=== PATIENT | female | born 1990 | race African-American/Black ===

== ENCOUNTER 2019-03-15 23:13 | Emergency (ER) | payer SELFPAY ==
[2019-03-15] MEDS ORDERED: NALOXONE HCL INJ/PF 0.4 MG/1 ML SDV IV ONE (23:23)
--- NOTE | 2019-03-15 23:28 | ER Document Report ---
ED General - General Chief Complaint: Unresponsive Stated Complaint: UNRESPONSIVE Time Seen by Provider: 03/15/19 23:19 - HPI Notes: Ms. Marquis is a 34-year-old female seen emergently for evaluation of altered mental status. Patient was brought to the front lobby by automobile by a friend with no history provided and was unresponsive but breathing spontaneously. No further history was initially obtainable. - Related Data Allergies/Adverse Reactions: No Known Allergies Allergy (Unverified 03/16/19 00:34) Past Medical History - General Cannot obtain history due to: Altered mental status - Social History Smoking Status: Unknown if Ever Smoked Family History: Reviewed & Not Pertinent Review of Systems - Review of Systems -: Yes ROS unobtainable due to patient's medical condition Physical Exam - Vital signs Vitals: Resp BP Pulse Ox 26 H 140/80 H 100 03/15/19 23:15 03/15/19 23:15 03/15/19 23:15 GENERAL: Young female patient moderately obese with spontaneous respirations which are shallow. She is not responding to painful stimuli. SKIN: Good turgor no rashes. Dry. Cool. HEAD: Normocephalic atraumatic. EYES: Pupils are pinpoint equal and sluggish. Conjunctivae and sclerae clear. EARS: CANALS AND TMS CLEAR. NOSE: CLEAR. MOUTH: No gag reflex present. Moist mucosa. Good dentition. No stridor or edema. No drooling. NECK: Supple. No masses or thyromegaly. No adenopathy. Carotids 2+ without bruits. No JVD. CHEST: Respirations slow and shallow. Breath sounds clear and symmetrical. HEART: Tachycardic regular rhythm. No murmur gallop or rub. ABDOMEN: Soft, obese, nontender without masses, organomegaly or rebound. Bowel sounds normally active. No bruits. GENITALIA: Deferred. EXTREMITIES: No edema. No calf tenderness. Cap refill less than 1.5 seconds. Dorsalis pedis and posterior tibial pulses 3+ and symmetrical. NEUROLOGICAL: Obtunded. Initial GCS of 3. PSYCHIATRIC: Nonverbal. Course - Re-evaluation Re-evalutation: 03/15/19 23:28 Narcotic overdose was strongly suspected. 2 mg Ativan IV given. Patient woke up immediately. She was momentarily disoriented but was then able to tell me her name and indicated that she had been taking some Percocet for hip pain on the left. She said that she took 2 tablets earlier this evening and does not remember anything after that. She denied any abuse of other types of drugs. She says she rarely drinks alcohol and was not drinking any tonight. She indicates she smokes 1 pack cigarettes per day. Patient's blood glucose was 250 by random stick. I suspect this elevation is due to a stress reaction but will follow this. Patient now has a GCS of 15 and nonfocal exam. We will check acetaminophen and salicylate level, blood alcohol, urine drug screen, comprehensive metabolic profile and CBC. We will also get an EKG. We note that the patient is currently menstruating. Further history obtained from the patient indicates that she is never been hospitalized or had surgery. She denies any history of in the past. She takes no long-term medications and denies allergies. 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 Currently living alone. She denies any suicidal intent. 03/16/19 02:24 Patient is currently alert and oriented x3. She is tolerating p.o. fluids stand and walk without assistance. Her vital signs are stable. She denies any suicidal intent and insists that she only took 2 of the Percocet tablets. Her tox screen was negative for alcohol and she had THC in her urine with no other illicit substances identified. Patient wants to go home at this time. I think she appears stable for disch arge. I cautioned her that she may be unusually sensitive to narcotics and advised her to dispose of any further Percocet she has on hand and to avoid taking similar agents in the future. I will give her a work note and referral for primary care follow-up. - Vital Signs Vital signs: Temp Pulse Resp BP Pulse Ox 16 120/70 97 03/16/19 01:01 03/16/19 01:01 03/16/19 01:01 - Laboratory Result Diagrams: 03/15/19 23:26 03/15/19 23:26 Laboratory results interpreted by me: 03/15/19 03/15/19 03/16/19 23:26 23:26 00:45 WBC 22.2 H RBC 5.57 H MCH 26.6 L RDW 15.1 H Band Neutrophils % 1 L Abs Neuts (Manual) 12.0 H Abs Lymphs (Manual) 7.8 H Abs Monocytes (Manual) 1.8 H Absolute Eos (Manual) 0.7 H Potassium 3.5 L Creatinine 1.29 H Est GFR ( Amer) 59 L Est GFR (MDRD) Non-Af 49 L Glucose 349 H AST 45 H Alkaline Phosphatase 155 H Urine Protein 100 H Urine Glucose (UA) >=500 H Urine Ketones TRACE H Urine Blood LARGE H Acetaminophen < 10 L - EKG Interpretation by Me Additional EKG results interpreted by me: 03/15/19 23:35 EKG at 2330 hrs. reviewed contemporaneously by me. Sinus tachycardia. Rate 126. Normal axis. Normal intervals. No acute ST changes. Critical Care Note - Critical Care Note Total time excluding time spent on procedures (mins): 35 Comments: Initial presentation c/w narcotic OD. Monitor, IV, O2, Amdera cath, preparation for possible intubation. Responded to IV Narcan and did not need intubation. Discharge - Discharge Clinical Impression: Accidental opiate overdose Condition: Stable Disposition: HOME, SELF-CARE Additional Instructions: Dispose of any additional Percocet that you have at home and do not take this medication in the future. You will be provided a work note for the next 3 days. You will be provided the name of a primary care clinic for follow-up. Return here as needed for new or worsening symptoms: Pain that is worsening or unimproved Uncontrolled vomiting High fever or shaking chills Overall worsening Forms: Return to Work Referrals: [facility] [Provider Group] - Follow up as needed
[2019-03-15 23:49] LABS: HEMATOCRIT 45.9 % (36.0-47.0); HEMOGLOBIN 14.8 g/dL (12.0-15.5); MEAN CORPUSCULAR HEMOGLOBIN 26.6 pg (27.0-33.4); MEAN CORPUSCULAR HGB CONC 32.3 g/dL (32.0-36.0); MEAN CORPUSCULAR VOLUME 82 fl (80-97); PLATELET COUNT 266 10^3/uL (150-450); RED BLOOD COUNT 5.57 10^6/uL (3.72-5.28); RED CELL DISTRIBUTION WIDTH 15.1 % (11.5-14.0); WHITE BLOOD COUNT 22.2 10^3/uL (4.0-10.5)
[2019-03-16 00:08] LABS: ABSOLUTE LYMPHOCYTES# (MANUAL) 7.8 10^3/uL (0.5-4.7); ABSOLUTE MONOCYTES # (MANUAL) 1.8 10^3/uL (0.1-1.4); BAND NEUTROPHILS % (MANUAL) 1 % (3-5); BASOPHILS % (MANUAL) 0 % (0-2); EOSINOPHILS % (MANUAL) 3 % (0-6); LYMPHOCYTES % (MANUAL) 35 % (13-45); MONOCYTES % (MANUAL) 8 % (3-13); SEGMENTED NEUTROPHILS % (MAN) 53 % (42-78); TOTAL CELLS COUNTED 100
[2019-03-16 00:10] LABS: ANISOCYTOSIS SLIGHT; OVALOCYTES SLIGHT; PLATELET COMMENT ADEQUATE; POIKILOCYTOSIS SLIGHT; SCHISTOCYTES SLIGHT; TEAR DROP CELLS SLIGHT; TOXIC GRANULATION SLIGHT
[2019-03-16 00:29] LABS: ALBUMIN 4.3 g/dL (3.5-5.0); ALKALINE PHOSPHATASE 155 U/L (38-126); ANION GAP 13 (5-19); ASPARTATE AMINO TRANSFERASE 45 U/L (14-36); BILIRUBIN,DIRECT 0.3 mg/dL (0.0-0.4); BILIRUBIN,TOTAL 0.9 mg/dL (0.2-1.3); BLOOD UREA NITROGEN 20 mg/dL (7-20); CARBON DIOXIDE 27 mmol/L (22-30); CHLORIDE 100 mmol/L (98-107); GLUCOSE 349 mg/dL (75-110); POTASSIUM 3.5 mmol/L (3.6-5.0); TOTAL PROTEIN 8.2 g/dL (6.3-8.2)
[2019-03-16 00:30] LABS: ACETAMINOPHEN < 10 ug/mL (10-30); ALCOHOL < 10 mg/dL (NONE DETECTED)
[2019-03-16 01:14] LABS: APPEARANCE,URINE SLIGHTLY-CLOUDY; BILIRUBIN,URINE NEGATIVE (NEGATIVE); GLUCOSE, URINE >=500 mg/dL (NEGATIVE); KETONES,URINE TRACE mg/dL (NEGATIVE); PROTEIN,URINE 100 mg/dL (NEGATIVE); URINE SPECIFIC GRAVITY 1.025; UROBILINOGEN,URINE NEGATIVE mg/dL (<2.0)
[2019-03-16 01:15] LABS: COLOR,URINE PINK
[2019-03-16 01:26] LABS: URINE AMPHETAMINES SCREEN NEGATIVE; URINE BARBITURATES SCREEN NEGATIVE; URINE BENZODIAZEPINES SCREEN NEGATIVE; URINE COCAINE SCREEN NEGATIVE; URINE METHADONE SCREEN NEGATIVE; URINE PHENCYCLIDINE SCREEN NEGATIVE
[2019-03-16 01:32] LABS: URINE MARIJUANA (THC) SCREEN UNCONFIRMED POSITIVE
[2019-03-16 02:31] VITALS: BP 112/64
--- NOTE | 2019-03-16 10:12 | EKG REPORT ---
SEVERITY:- OTHERWISE NORMAL ECG - SINUS TACHYCARDIA BORDERLINE RIGHT AXIS DEVIATION : Confirmed by: Barby Price MD 16-Mar-2019 10:12:34
== END 2019-03-16 02:49 | disposition home or self-care (01) ==
LOC: ER 23:13
DX: T40.2X1A Poisoning by other opioids, accidental (unintentional), initial encounter (principal); R41.82 Altered mental status, unspecified; R00.0 Tachycardia, unspecified; R73.9 Hyperglycemia, unspecified; E66.9 Obesity, unspecified; M25.552 Pain in left hip; F17.210 Nicotine dependence, cigarettes, uncomplicated
CPT/HCPCS: 93005; 99291; 96374; 36415; 82962; 80307 ×3; 85025; 80053; 81001; 93010; J2310

== ENCOUNTER 2020-01-05 22:58 | Emergency (ER) | payer SELFPAY ==
[2020-01-05] MEDS ORDERED: MAG HYDROX/AL HYDROX/SIMETH SUSP 30 ML UDCUP PO ONE (23:22)
[2020-01-05] MEDS ORDERED: LIDOCAINE 2% VISCOUS SOLN 15 ML UDCUP PO ONE (23:22)
--- NOTE | 2020-01-05 23:23 | ER Document Report ---
ED Medical Screen (RME) - General Stated Complaint: HEART RACING/TIGHTNESS OF CHEST Time Seen by Provider: 01/05/20 23:21 Notes: HPI: 29-year-old female presenting for episode of chest discomfort in the left upper chest with radiation to the shoulder that began around 10 4515 minutes after eating tonight. Denies abdominal pain nausea vomiting. No shortness of breath. Patient was concerned about it being her heart because she states that she accidentally overdosed this year and was told she "flatlined" twice during that episode PHYSICAL EXAMINATION: Mild tenderness through the left upper chest and trapezius region on palpation. Lung sounds are clear to auscultation. Mild tachycardia I have greeted and performed a rapid initial assessment of this patient. A comprehensive ED assessment and evaluation of the patient, analysis of test results and completion of medical decision making process will be conducted by an additional ED providers. TRAVEL OUTSIDE OF THE [place] IN LAST 30 DAYS: No - Related Data Allergies/Adverse Reactions: No Known Allergies Allergy (Unverified 03/16/19 00:34) Past Medical History Pulmonary Medical History: Reports: Hx Asthma Endocrine Medical History: Reports: Hx Diabetes Mellitus Type 1 Musculoskeltal Medical History: Reports Hx Arthritis Physical Exam - Vital signs Vitals: Temp Pulse Resp BP Pulse Ox 99.0 F 104 H 17 153/94 H 100 01/05/20 23:10 01/05/20 23:10 01/05/20 23:10 01/05/20 23:10 01/05/20 23:10 Course - Vital Signs Vital signs: Temp Pulse Resp BP Pulse Ox 99.0 F 104 H 17 153/94 H 100 01/05/20 23:10 01/05/20 23:10 01/05/20 23:10 01/05/20 23:10 01/05/20 23:10
[2020-01-06 00:26] LABS: ABSOLUTE BASOPHILS # (AUTO) 0.1 10^3/uL (0.0-0.2); ABSOLUTE EOSINOPHILS # (AUTO) 0.1 10^3/uL (0.0-0.6); ABSOLUTE LYMPHOCYTES (AUTO) 2.6 10^3/uL (0.5-4.7); ABSOLUTE MONOCYTES (AUTO) 0.8 10^3/uL (0.1-1.4); ABSOLUTE NEUT (AUTO) 9.4 10^3/uL (1.7-8.2); BASOPHILS % (AUTO) 0.6 % (0-2); EOSINOPHILS % (AUTO) 0.9 % (0-6); HEMATOCRIT 38.6 % (36.0-47.0); HEMOGLOBIN 13.1 g/dL (12.0-15.5); LYMPHOCYTES % (AUTO) 19.9 % (13-45); MEAN CORPUSCULAR HEMOGLOBIN 26.5 pg (27.0-33.4); MEAN CORPUSCULAR VOLUME 78 fl (80-97); MONOCYTES % (AUTO) 6.2 % (3-13); PLATELET COUNT 232 10^3/uL (150-450); RED BLOOD COUNT 4.96 10^6/uL (3.72-5.28); RED CELL DISTRIBUTION WIDTH 13.9 % (11.5-14.0); SEGMENTED NEUTROPHILS % (AUTO) 72.4 % (42-78); TOTAL CELLS COUNTED % (AUTO) 100 %
[2020-01-06 00:44] LABS: ALKALINE PHOSPHATASE 107 U/L (38-126); ANION GAP 10 (5-19); ASPARTATE AMINO TRANSFERASE 25 U/L (14-36); BILIRUBIN,TOTAL 0.5 mg/dL (0.2-1.3); BLOOD UREA NITROGEN 8 mg/dL (7-20); CALCIUM 9.7 mg/dL (8.4-10.2); CARBON DIOXIDE 26 mmol/L (22-30); CHLORIDE 99 mmol/L (98-107); GLUCOSE 285 mg/dL (75-110); TOTAL PROTEIN 7.2 g/dL (6.3-8.2)
--- NOTE | 2020-01-06 01:14 | RADIOLOGY REPORT (SQ) ---
EXAM DESCRIPTION: XR CHEST 1 VIEW COMPLETED DATE/TME: 01/05/2020 23:22 CLINICAL INDICATION: 29-year-old female with chest pain. TECHNIQUE: Single view, AP portable chest was obtained. COMPARISON: None. FINDINGS: Unremarkable cardiac and mediastinal silhouette. Heart size is normal. Lungs are clear without focal opacity, pneumothorax or pleural effusions. The visualized bones are within normal limits. IMPRESSION: No acute cardiopulmonary abnormalities.
--- NOTE | 2020-01-06 01:40 | ER Document Report ---
ED General - General Chief Complaint: Chest Pain Stated Complaint: HEART RACING/TIGHTNESS OF CHEST Time Seen by Provider: 01/05/20 23:21 Primary Care Provider: [facility] JESSICA,SUSAN [Primary Care Provider] - Follow up as needed MK BURCH MD [ACTIVE STAFF] - Follow up in 3-5 days (for cardiology outpatient follow up) TRAVEL OUTSIDE OF THE [place] IN LAST 30 DAYS: No - HPI Notes: 29-year-old female with past medical history for diabetes, accidental overdose on oxycodone 30 mg to the emergency department with complaints of acute onset left-sided chest pain radiating into her shoulder with associated mild shortness of breath. She states it started about 1045 about 15 minutes after she ate. She states she ate pizza with garlic sauce and was managed on it and had a small shot of vodka tonight for dinner. She states that she felt like her heart was racing out of her chest and palpitating. She states she has had palpitations off and on for the past couple of months as well. She states that after she got GI cocktail in triage that she is feeling little bit better but still having a little bit of mild pain. She is a diabetic. There is a past medical history for heart attack on her paternal grandfather side at age 84. She does not have a history of high blood pressure hyperlipidemia. She is a former smoker. She denies any leg swelling or recent travel. She does take control. - Related Data Allergies/Adverse Reactions: No Known Allergies Allergy (Unverified 03/16/19 00:34) Home Medications: metformin, bcp Past Medical History - General Information source: Patient - Social History Smoking Status: Former Smoker Frequency of alcohol use: Occasional Drug Abuse: None Family History: Reviewed & Not Pertinent Pulmonary Medical History: Reports: Hx Asthma Endocrine Medical History: Reports: Hx Diabetes Mellitus Type 1 Musculoskeletal Medical History: Reports Hx Arthritis Review of Systems - Review of Systems Constitutional: denies: Chills, Diaphoresis, Fever EENT: No symptoms reported Cardiovascular: Chest pain, Palpitations, Heart racing. denies: Orthopnea, Dyspnea, Syncope, Dizziness, Lightheaded, Edema Respiratory: Short of breath. denies: Cough Gastrointestinal: denies: Abdominal pain, Diarrhea, Nausea, Vomiting Genitourinary: No symptoms reported Musculoskeletal: denies: Back pain Skin: No symptoms reported Hematologic/Lymphatic: No symptoms reported Neurological/Psychological: No symptoms reported -: Yes All other systems reviewed and negative Physical Exam - Vital signs Vitals: Temp Pulse Resp BP Pulse Ox 99.0 F 104 H 17 153/94 H 100 01/05/20 23:10 01/05/20 23:10 01/05/20 23:10 01/05/20 23:10 01/05/20 23:10 Interpretation: Normal - General General appearance: Appears well, Alert In distress: None - HEENT Head: Normocephalic, Atraumatic Eyes: Normal Pupils: PERRL Neck: Normal, Supple - Respiratory Respiratory status: No respiratory distress Chest status: Nontender Breath sounds: Normal. No: Rales, Rhonchi, Wheezing Chest palpation: Normal - Cardiovascular Rhythm: Regular Heart sounds: Normal auscultation Murmur: No Notes: No pedal edema; no tenderness to palpation over the chest wall. There is no crepitus or step-off - Abdominal Inspection: Obese Distension: No distension Bowel sounds: Normal Tenderness: Nontender. No: Tender, McBurney's point, Alarcon's sign, Guarding, Rebound Organomegaly: No organomegaly - Back Back: Normal, Nontender. No: CVA tenderness - Extremities General upper extremity: Normal inspection, Nontender, Normal color, Normal ROM, Normal temperature General lower extremity: Normal inspection, Nontender, Normal color, Normal ROM, Normal temperature, Normal weight bearing. 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 Patient's chest pain is completely resolved. Certainly part of her chest pain could be related to reflux but she reports these palpitations have been coming and going for the past several months. Thus, we will send her for outpatient follow-up with cardiology. She is to return if she has any worsening symptoms. She has a HEART score of 1. Low Well's criteria for PE, low suspicion for AD. - Vital Signs Vital signs: Temp Pulse Resp BP Pulse Ox 98.2 F 104 H 20 128/87 H 100 01/06/20 04:00 01/05/20 23:10 01/06/20 04:00 01/06/20 04:00 01/06/20 04:00 - Laboratory Result Diagrams: 01/06/20 00:15 01/06/20 00:15 Laboratory results interpreted by me: 01/06/20 01/06/20 00:15 00:15 WBC 13.0 H MCV 78 L MCH 26.5 L Absolute Neuts (auto) 9.4 H Sodium 134.6 L Glucose 285 H - Diagnostic Test Radiology reviewed: Image reviewed, Reports reviewed - EKG Interpretation by Me Additional EKG results interpreted by me: 01/06/20 Rate: 105 Rhythm: Sinus tachycardia, Interpretation: No STEMI, no ST changes, no LVH, no significant change from prior on March 15, 2019. Discharge - Discharge Clinical Impression: Palpitations, Hyperglycemia Chest pain Qualifiers: Chest pain type: unspecified Qualified Code(s): R07.9 - Chest pain, unspecified Condition: Stable Disposition: HOME, SELF-CARE Instructions: Palpitations (Irregular or Rapid Heartrate) ([facility]) Additional Instructions: Follow-up with cardiology outpatient for your palpitations. Today you had reassuring blood work as well as a clear x-ray and a reassuring EKG. Return if you have any worsening symptoms. You also had a little bit of elevated blood sugar. This is likely because you just eaten and not taking your Metformin tonight. Please continue take your Metformin as prescribed. Referrals: [facility] [Primary Care Provider] - Follow up as needed MK BURCH MD [ACTIVE STAFF] - Follow up in 3-5 days (for cardiology outpatient follow up)
[2020-01-06] MEDS ORDERED: NORMAL SALINE 1000 ML 1,000 ML IV ONE (02:09)
[2020-01-06 05:03] VITALS: BP 105/72
--- NOTE | 2020-01-06 18:17 | EKG REPORT ---
SEVERITY:- OTHERWISE NORMAL ECG - SINUS TACHYCARDIA : Confirmed by: Earl Rico MD 06-Jan-2020 18:17:00
== END 2020-01-06 05:05 | disposition home or self-care (01) ==
LOC: ER 22:58
DX: E11.65 Type 2 diabetes mellitus with hyperglycemia (principal); R07.9 Chest pain, unspecified; R00.2 Palpitations
CPT/HCPCS: 93005; 99285; 96360; 36415; 82962; 84443; 85025; 80053; 84484; 71045; 93010; J3490; J7030

== ENCOUNTER → 2020-01-28 | Outpatient (CLI) | payer OTHER ==
[2020-01-28 16:22] LABS: ABSOLUTE BASOPHILS # (AUTO) 0.1 10^3/uL (0.0-0.2); ABSOLUTE EOSINOPHILS # (AUTO) 0.1 10^3/uL (0.0-0.6); ABSOLUTE LYMPHOCYTES (AUTO) 2.8 10^3/uL (0.5-4.7); ABSOLUTE MONOCYTES (AUTO) 0.6 10^3/uL (0.1-1.4); ABSOLUTE NEUT (AUTO) 7.4 10^3/uL (1.7-8.2); BASOPHILS % (AUTO) 0.6 % (0-2); EOSINOPHILS % (AUTO) 0.7 % (0-6); HEMOGLOBIN 13.2 g/dL (12.0-15.5); LYMPHOCYTES % (AUTO) 25.2 % (13-45); MEAN CORPUSCULAR VOLUME 79 fl (80-97); MONOCYTES % (AUTO) 5.8 % (3-13); PLATELET COUNT 236 10^3/uL (150-450); RED BLOOD COUNT 5.09 10^6/uL (3.72-5.28); RED CELL DISTRIBUTION WIDTH 14.2 % (11.5-14.0); SEGMENTED NEUTROPHILS % (AUTO) 67.7 % (42-78); TOTAL CELLS COUNTED % (AUTO) 100 %
[2020-01-28 16:47] LABS: ALBUMIN 4.2 g/dL (3.5-5.0); ALKALINE PHOSPHATASE 105 U/L (38-126); ANION GAP 7 (5-19); ASPARTATE AMINO TRANSFERASE 24 U/L (14-36); BILIRUBIN,TOTAL 0.9 mg/dL (0.2-1.3); BLOOD UREA NITROGEN 6 mg/dL (7-20); CALCIUM 9.7 mg/dL (8.4-10.2); CARBON DIOXIDE 27 mmol/L (22-30); CHLORIDE 101 mmol/L (98-107); GLUCOSE 139 mg/dL (75-110); POTASSIUM 4.5 mmol/L (3.6-5.0); TOTAL PROTEIN 7.6 g/dL (6.3-8.2)
== END ==
LOC: CCC 15:36
PROVIDERS: ATTEND Internal Medicine
DX: E11.8 Type 2 diabetes mellitus with unspecified complications (principal); R94.5 Abnormal results of liver function studies
CPT/HCPCS: 36415; 80048; 80076; 83036; 85025

== ENCOUNTER 2020-02-10 22:24 | Emergency (ER) | payer SELFPAY ==
--- NOTE | 2020-02-10 23:24 | ER Document Report ---
ED Medical Screen (RME) - General Chief Complaint: Chest Pain Stated Complaint: CHEST PAIN, SOB, HEADACHE Time Seen by Provider: 02/10/20 23:20 Primary Care Provider: SUSAN DAS [Primary Care Provider] - Follow up as needed TRAVEL OUTSIDE OF THE [place] IN LAST 30 DAYS: No - HPI Notes: Patient is a 29-year-old female with a hx of asthma who presents with chest tightness and shortness of breath that began a couple hours ago. She also reports headache and sore throat. She denies fever, cough, nasal congestion, abdominal pain and vomiting. Patient states this does not feel like her typical asthma exacerbations. She denies any known sick contacts or potential COVID exposures. - Related Data Allergies/Adverse Reactions: No Known Allergies Allergy (Unverified 03/16/19 00:34) Home Medications: control, 1000mg metformin, Past Medical History - Social History Frequency of alcohol use: None Drug Abuse: None Pulmonary Medical History: Reports: Hx Asthma Endocrine Medical History: Reports: Hx Diabetes Mellitus Type 1, Hx Diabetes Mellitus Type 2 Musculoskeltal Medical History: Reports Hx Arthritis Physical Exam - Vital signs Vitals: Temp Pulse Resp BP Pulse Ox 99.3 F 89 20 126/84 H 100 02/10/20 22:41 02/10/20 22:41 02/10/20 22:41 02/10/20 22:41 02/10/20 22:41 - Respiratory Respiratory status: No respiratory distress Breath sounds: Normal Course - Re-evaluation Re-evalutation: I have greeted and performed a rapid initial assessment of this patient. A comprehensive ED assessment and evaluation of the patient, analysis of test results and completion of medical decision making process will be conducted by an additional ED providers. - Vital Signs Vital signs: Temp Pulse Resp BP Pulse Ox 99.3 F 89 20 126/84 H 100 02/10/20 22:41 02/10/20 22:41 02/10/20 22:41 02/10/20 22:41 02/10/20 22:41 Doctor's Discharge - Discharge Referrals: [facility] [Primary Care Provider] - Follow up as needed
[2020-02-11 00:01] LABS: ABSOLUTE BASOPHILS # (AUTO) 0.1 10^3/uL (0.0-0.2); ABSOLUTE EOSINOPHILS # (AUTO) 0.1 10^3/uL (0.0-0.6); ABSOLUTE LYMPHOCYTES (AUTO) 3.2 10^3/uL (0.5-4.7); ABSOLUTE MONOCYTES (AUTO) 0.8 10^3/uL (0.1-1.4); ABSOLUTE NEUT (AUTO) 7.8 10^3/uL (1.7-8.2); BASOPHILS % (AUTO) 0.5 % (0-2); EOSINOPHILS % (AUTO) 1.1 % (0-6); HEMATOCRIT 38.2 % (36.0-47.0); HEMOGLOBIN 12.8 g/dL (12.0-15.5); LYMPHOCYTES % (AUTO) 26.7 % (13-45); MEAN CORPUSCULAR HEMOGLOBIN 26.2 pg (27.0-33.4); MEAN CORPUSCULAR HGB CONC 33.4 g/dL (32.0-36.0); MEAN CORPUSCULAR VOLUME 78 fl (80-97); MONOCYTES % (AUTO) 6.4 % (3-13); PLATELET COUNT 199 10^3/uL (150-450); RED BLOOD COUNT 4.87 10^6/uL (3.72-5.28); RED CELL DISTRIBUTION WIDTH 15.1 % (11.5-14.0); SEGMENTED NEUTROPHILS % (AUTO) 65.3 % (42-78); TOTAL CELLS COUNTED % (AUTO) 100 %
[2020-02-11 00:14] LABS: ALBUMIN 3.9 g/dL (3.5-5.0); ALKALINE PHOSPHATASE 89 U/L (38-126); ANION GAP 8 (5-19); ASPARTATE AMINO TRANSFERASE 25 U/L (14-36); BILIRUBIN,TOTAL 0.6 mg/dL (0.2-1.3); BLOOD UREA NITROGEN 8 mg/dL (7-20); CALCIUM 9.9 mg/dL (8.4-10.2); CARBON DIOXIDE 25 mmol/L (22-30); CHLORIDE 103 mmol/L (98-107); GLUCOSE 131 mg/dL (75-110); POTASSIUM 4.4 mmol/L (3.6-5.0); TOTAL PROTEIN 7.4 g/dL (6.3-8.2)
--- NOTE | 2020-02-11 00:14 | RADIOLOGY REPORT (SQ) ---
CLINICAL HISTORY: chest pain COMPARISON: 01/06/2020. 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 Lungs are clear without consolidation, atelectasis, mass or edema. There is no pleural effusion. There is no pneumothorax. There are no acute osseous findings. IMPRESSION: Clear lungs.
--- NOTE | 2020-02-11 00:24 | EKG REPORT ---
SEVERITY:- NORMAL ECG - SINUS RHYTHM : Confirmed by: Lelia Cuello 11-Feb-2020 00:24:06
--- NOTE | 2020-02-11 01:41 | ER Document Report ---
ED General - General Chief Complaint: Chest Pain Stated Complaint: CHEST PAIN, SOB, HEADACHE Time Seen by Provider: 02/10/20 23:20 Primary Care Provider: [facility] [Primary Care Provider] - Follow up as needed TRAVEL OUTSIDE OF THE [place] IN LAST 30 DAYS: No - HPI Context: Chief Complaint: [Chest tightness] [29-year-old female with a history of asthma presents to the emergency department complaining of chest tightness and trouble breathing for the past 5 days. Patient states that she does not have an albuterol inhaler currently. Patient denies smoking or vaping. Patient states that she is not closely around anybody else who smokes. Patient denies radiation of tightness into her neck or jaw or down into her arm. Patient denies history of COVID-19 infection, known exposure to COVID-19 positive persons or persons under investigation for COVID-19. Patient denies fever, chills ] History obtained from [patient] Symptoms began:[5 days ago] Onset: [Gradual] Timing: [Gradual] Quality: [Patient describes sensations of tightness in her chest and is complaining of difficulty taking a deep breath] Intensity: [Patient states the intensity is moderate but denies pain] Location: [Chest] Radiation: [None] [The pain does not migrate to a new location.] Aggravating factors: Exertion Relieving factors: [none] Positive SOB [Denies] nausea [Denies] vomiting [Denies] sweats [Denies] fever [Denies] cough [Denies] calf or leg swelling or pain - Related Data Allergies/Adverse Reactions: No Known Allergies Allergy (Unverified 03/16/19 00:34) Home Medications: control, 1000mg metformin, Past Medical History - General Information source: Patient - Social History Smoking Status: Never Smoker Frequency of alcohol use: None Drug Abuse: None Family History: Reviewed & Not Pertinent Patient has homicidal ideation: No Pulmonary Medical History: Reports: Hx Asthma Endocrine Medical History: Reports: Hx Diabetes Mellitus Type 1, Hx Diabetes Mellitus Type 2 Musculoskeletal Medical History: Reports Hx Arthritis Review of Systems - Review of Systems Notes: Review of systems as below unless otherwise stated in HPI. CONSTITUTIONAL [No] fever, [No] chills. EYES [No] eye pain. ENT [No] URI symptoms, [No] sore throat, [No] ear pain. CARDIOVASCULAR [No] chest pain, [No] palpitations, [No] edema. Positive chest tightness RESPIRATORY [No] Cough, positive SOB, positive wheezing. GASTROINTESTINAL [No] abdominal pain, [No] nausea, [No] Diarrhea, [No] Vomiting, [No] constipation, [No] melena, [No] rectal bleeding. GENITOURINARY [No] dysuria, [No] urinary frequency, [No] hematuria, [No] urinary urgency, [No] vaginal discharge, [No] vaginal bleeding. MUSCULOSKELETAL [No] Back pain. SKIN [No] Rash. NEUROLOGIC [No] Headache, [No] recent seizures, [No] paralysis,[No] parathesias. ENDOCRINE [No] polyuria. HEMO/LYMPATIC [No] easy brusing PSYCHIATRIC [No] depression. Physical Exam - Vital signs Vitals: Temp Pulse Resp BP Pulse Ox 99.3 F 89 20 126/84 H 100 02/10/20 22:41 02/10/20 22:41 02/10/20 22:41 02/10/20 22:41 02/10/20 22:41 - Notes Notes: CONSTITUTIONAL [Vital signs reviewed, Patient appears comfortable, Alert and oriented X 3, Normal stature.] HEAD [Atraumatic, Normocephalic.] EYES [Eyes are normal to inspection, No discharge from eyes, Extraocular muscles intact, Sclera are normal, Conjunctiva are normal.] ENT [External ears normal to inspection, Nose examination normal, Mouth normal to inspection.] NECK [Normal ROM, No jugular venous distention, No meningeal signs, ] RESPIRATORY CHEST [Chest is nontender, breath sounds are diminished in all lung plunkett. Wheezing is present in the posterior lung bases bilaterally CARDIOVASCULAR [RRR, No murmurs, Normal S1 S2, No rub, No gallop.] ABDOMEN [Abdomen is nontender, No pulsatile masses, No other masses, Bowel sounds normal, No distension, No peritoneal signs, No hernias.] BACK [There is no CVA Tenderness, There is no tenderness to palpation, Normal inspection.] UPPER EXTREMITY [Inspection normal, No cyanosis, No clubbing, No edema, LOWER EXTREMITY [Inspection normal, No cyanosis, No clubbing, No edema, No calf tenderness, NEURO [No focal motor deficits, No focal sensory deficits, Speech normal.] SKIN [Skin is warm, Skin is dry, Skin is normal color.] PSYCHIATRIC [Normal affect. ] Course - Re-evaluation Re-evalutation: 02/11/20 04:01 Patient states she feels better after breathing treatments. Results of ED MSE discussed with patient. All questions were answered prior to discharge. Emergency signs and symptoms, reasons to return to the emergency department discussed with patient. - Vital Signs Vital signs: Temp Pulse Resp BP Pulse Ox 98.2 F 98 16 128/73 H 100 02/11/20 03:27 02/11/20 03:27 02/11/20 03:27 02/11/20 03:27 02/11/20 03:27 - Laboratory Results Result Diagrams: 02/10/20 23:30 02/10/20 23:30 Laboratory Results Interpreted: 02/10/20 02/10/20 23:30 23:30 WBC 12.0 H MCV 78 L MCH 26.2 L RDW 15.1 H Sodium 135.5 L Glucose 131 H Critical Laboratory Results Reviewed: No Critical Results Attending or Supervising Physician who Reviewed Labs: VOLODYMYR DERAS IV - Radiology Results Critical Radiology Results Reviewed: No Critical Results Attending or Supervising Physician who Reviewed Radiology: VOLODYMYR DERAS IV - EKG Interpretation by Me Additional EKG results interpreted by me: 02/11/20 01:30 EKG obtained on 02/10/2020 at 2233 hrs. was interpreted by this MD. Findings: Normal sinus rhythm, rate 86, normal axis, AK interval appears to be within normal limits, P waves preceding QRS complexes, QRS complexes appear narrow, QTC is 436, there are no obvious patterns of ST segment elevation, depression or reciprocal changes seen to suggest acute myocardial ischemia or infarction. When compared with prior EKG from 01/05/2020 the gross morphology of the 2 EKGs appears to be the same. No significant changes seen. Impression normal sinus rhythm with nonspecific ST segments. Discharge - Discharge Clinical Impression: Asthma exacerbation Qualifiers: Asthma severity: unspecified severity Asthma persistence: unspecified Qualified Code(s): J45.901 - Unspecified asthma with (acute) exacerbation Condition: Stable Disposition: HOME, SELF-CARE Additional Instructions: Return to the Emergency Department without delay if any worse. HOME CARE INSTRUCTIONS & INFORMATION: Thank you for choosing us for your medical needs. We hope you're satisfied with the care you received. After you leave, you must properly care for your problem and, at the same time, observe its progress. Any condition can change. Some illnesses can change rapidly over hours or days. If your condition worsens, return to the Emergency Department or see your physician promptly. ABOUT YOUR X-RAYS AND EKG'S: If you had an EKG or X-rays taken, they have been read by the Emergency Physician. The X-rays and EKG's will also be read by a Radiologist or Other Wood Processing Machine Operator within 24 hours. If discrepancies are noted, you will be notified by telephone. Please be certain the ED has a correct telephone number & address where you can be reached. Also, realize that some fractures or abnormalities do not show up on initial X-rays. If your symptoms continue, see your physician. ABOUT YOUR LABORATORY TEST: If you had laboratory tests, the results have been reviewed by the Emergency Physician. Some test results (for example cultures) may not be available for several days. You will be contacted if any test result shows you need additional treatment. Please be certain the ED has a correct telephone number and address where you can be reached. ABOUT YOUR MEDICATIONS: You will receive instructions on how to take your medicine on the prescription label you receive. Additional information may be provided by the Pharmacy. If you have questions afterwards, call the ED for clarification or further instructions. Some prescribed medications may cause drowsiness. Do not perform tasks such as driving a car or operating machinery without consulting your Pharmacist. If you feel you need a refill of pain medication, your condition will need re-evaluation. Please do not call for a refill of any medication. ABOUT YOUR SIGNATURE: Signature of this document acknowledges to followin. Understanding that you received emergency treatment and that you may be released before al medical problems are known or treated. Please be certain the ED has a correct phone number & address where you can be reached. 2. Acknowledgement that you will arrange for follow-up care as recommended. 3. Authorization for the Emergency Physician to provide information to your follow-up Physician in order to maximize your care. AT ANY TIME, IF YOUR SYMPTOMS CHANGE SIGNIFICANTLY OR WORSEN OR YOU DEVELOP NEW SYMPTOMS, RETURN TO THE EMERGENCY DEPARTMENT IMMEDIATELY FOR RE-EVALUATION. OUR GOAL IS TO PROVIDE EXCELLENT MEDICAL CARE! WE HOPE THAT WE HAVE MET YOUR EXPECTATIONS DURING YOUR EMERGENCY DEPARTMENT VISIT AND THAT YOU FEEL YOU HAVE RECEIVED EXCELLENT CARE! Prescriptions: Prednisone [Deltasone 20 mg Tablet] 3 tab PO DAILY 4 Days #12 tablet Forms: Return to Work Referrals: [facility] [Primary Care Provider] - Follow up as needed
[2020-02-11] MEDS ORDERED: LEVALBUTEROL HCL NEB 1.25 MG/3 ML AMPUL NEB ONE (01:42)
[2020-02-11] MEDS ORDERED: PREDNISONE 20 MG TABLET PO ONE (01:42)
[2020-02-11] MEDS ORDERED: ALBUTEROL SULFATE HFA (90 MCG/PUFF) 8 GM MDI (1 MDI/ER DISP) IH PRN (03:07)
[2020-02-11 03:28] VITALS: BP 128/73
== END 2020-02-11 03:30 | disposition home or self-care (01) ==
LOC: ER 22:24
DX: J45.901 Unspecified asthma with (acute) exacerbation (principal); R07.89 Other chest pain; R06.02 Shortness of breath; E11.9 Type 2 diabetes mellitus without complications; Z79.3 Long term (current) use of hormonal contraceptives; Z79.84 Long term (current) use of oral hypoglycemic drugs
CPT/HCPCS: 93005; 94640; 99285; 36415; 87070; 87880; 85025; 80053; 84484; 71045; 93010; J7512; J7614; J3490

== ENCOUNTER 2020-02-12 13:06 | Emergency (ER) | payer SELFPAY ==
--- NOTE | 2020-02-12 13:53 | ER Document Report ---
ED Medical Screen (RME) - General Chief Complaint: Shortness Of Breath Stated Complaint: SHORT OF BREATH,HEADACHE Time Seen by Provider: 02/12/20 13:46 Primary Care Provider: [facility] [Primary Care Provider] - Follow up as needed Notes: HPI: 29-year-old female with history of hypertension, diabetes, asthma presenting for continued or worsened shortness of breath and tightness in the chest. Patient became ill approximately 7 days ago with shortness of breath. She believed it was asthma and was using her inhaler did not get better states she came here 2 days ago and had a chest x-ray and an EKG and they said she was fine she did feel better on steroids with an inhaler but today the inhaler is not working she feels shortness of breath and tightness in the chest when she takes a deep breath in. No fever PHYSICAL EXAMINATION: Lung sounds are clear to auscultation regular rate and rhythm no dyspnea with speaking I have greeted and performed a rapid initial assessment of this patient. A comprehensive ED assessment and evaluation of the patient, analysis of test results and completion of medical decision making process will be conducted by an additional ED providers. TRAVEL OUTSIDE OF THE [place] IN LAST 30 DAYS: No - Related Data Allergies/Adverse Reactions: Latex, Natural Rubber Allergy (Verified 02/12/20 13:45) Home Medications: albuterol inhaler. steriods. metformin. control alyacen Past Medical History - Social History Chew tobacco use (# tins/day): No Frequency of alcohol use: Occasional Drug Abuse: None - Past Medical History Cardiac Medical History: Reports: Hx Hypertension Pulmonary Medical History: Reports: Hx Asthma Endocrine Medical History: Reports: Hx Diabetes Mellitus Type 2 Renal/ Medical History: Denies: Hx Peritoneal Dialysis Psychiatric Medical History: Reports: Hx Anxiety Past Surgical History: Reports: Hx Oral Surgery - wisdom teeth - Immunizations Hx Diphtheria, Pertussis, Tetanus Vaccination: Yes Physical Exam - Vital signs Vitals: Temp Pulse Resp BP Pulse Ox 98.9 F 98 20 133/81 H 98 02/12/20 13:39 02/12/20 13:39 02/12/20 13:39 02/12/20 13:39 02/12/20 13:39 Course - Vital Signs Vital signs: Temp Pulse Resp BP Pulse Ox 98.9 F 98 20 133/81 H 98 02/12/20 13:39 12/15/20 13:39 02/12/20 13:39 02/12/20 13:39 02/12/20 13:39 Doctor's Discharge - Discharge Referrals: [facility] [Primary Care Provider] - Follow up as needed
--- NOTE | 2020-02-12 14:21 | EKG REPORT ---
SEVERITY:- NORMAL ECG - SINUS RHYTHM : Confirmed by: Barby Price MD 12-Feb-2020 14:20:48
--- NOTE | 2020-02-12 14:57 | RADIOLOGY REPORT (SQ) ---
EXAM DESCRIPTION: CHEST SINGLE VIEW IMAGES COMPLETED DATE/TIME: 02/12/2020 2:34 pm REASON FOR STUDY: sob COMPARISON: 12/05/2019 NUMBER OF VIEWS: One view. TECHNIQUE: Single frontal radiographic view of the chest acquired. LIMITATIONS: None. FINDINGS: LUNGS AND PLEURA: No opacities, masses or pneumothorax. No pleural effusion. MEDIASTINUM AND HILAR STRUCTURES: No masses. Contour normal. HEART AND VASCULAR STRUCTURES: Heart normal in size. Normal vasculature. BONES: No acute findings. HARDWARE: None in the chest. OTHER: No other significant finding. IMPRESSION: NO SIGNIFICANT RADIOGRAPHIC FINDING IN THE CHEST. TECHNICAL DOCUMENTATION: JOB ID: [id number] 2010 [employer]- All Rights Reserved Reading location - IP/workstation name: [email or web address]
[2020-02-12 17:13] LABS: ABSOLUTE BASOPHILS # (AUTO) 0.1 10^3/uL (0.0-0.2); ABSOLUTE MONOCYTES (AUTO) 0.8 10^3/uL (0.1-1.4); ABSOLUTE NEUT (AUTO) 9.5 10^3/uL (1.7-8.2); BASOPHILS % (AUTO) 0.6 % (0-2); EOSINOPHILS % (AUTO) 0.3 % (0-6); HEMATOCRIT 38.4 % (36.0-47.0); HEMOGLOBIN 12.6 g/dL (12.0-15.5); LYMPHOCYTES % (AUTO) 22.6 % (13-45); MEAN CORPUSCULAR HEMOGLOBIN 25.7 pg (27.0-33.4); MEAN CORPUSCULAR HGB CONC 32.9 g/dL (32.0-36.0); MEAN CORPUSCULAR VOLUME 78 fl (80-97); MONOCYTES % (AUTO) 5.7 % (3-13); PLATELET COUNT 215 10^3/uL (150-450); RED BLOOD COUNT 4.91 10^6/uL (3.72-5.28); SEGMENTED NEUTROPHILS % (AUTO) 70.8 % (42-78); TOTAL CELLS COUNTED % (AUTO) 100 %; WHITE BLOOD COUNT 13.4 10^3/uL (4.0-10.5)
[2020-02-12 17:22] LABS: ALKALINE PHOSPHATASE 90 U/L (38-126); ANION GAP 8 (5-19); ASPARTATE AMINO TRANSFERASE 40 U/L (14-36); BILIRUBIN,DIRECT 0.1 mg/dL (0.0-0.4); BILIRUBIN,TOTAL 0.9 mg/dL (0.2-1.3); BLOOD UREA NITROGEN 9 mg/dL (7-20); CALCIUM 9.6 mg/dL (8.4-10.2); CARBON DIOXIDE 27 mmol/L (22-30); CHLORIDE 102 mmol/L (98-107); GLUCOSE 205 mg/dL (75-110); POTASSIUM 4.4 mmol/L (3.6-5.0); TOTAL PROTEIN 7.5 g/dL (6.3-8.2)
[2020-02-12 17:40] LABS: NT PRO BNP 40 pg/mL (<125)
[2020-02-12 17:46] LABS: TROPONIN I < 0.012 ng/mL
--- NOTE | 2020-02-12 17:54 | ER Document Report ---
ED General - General Chief Complaint: Shortness Of Breath Stated Complaint: SHORT OF BREATH,HEADACHE Time Seen by Provider: 02/12/20 13:46 Primary Care Provider: [facility] [Primary Care Provider] - Follow up in 3-5 days Mode of Arrival: Ambulatory Information source: Patient TRAVEL OUTSIDE OF THE [place] IN LAST 30 DAYS: No - HPI Notes: Patient has a history of asthma. She states she was seen here 2 days ago and g iven an inhaler and steroids however she now feels worse. She states the shortness breath is slightly worse but she has been feeling dizzy and lightheaded today and having a headache. She states this concerned her so she came back to emergency department. No known Covid virus exposures. No vomiting or diarrhea. Her headache is been mild to moderate. Is been throbbing. Is mainly frontal and radiates throughout her head. It is worse with movement and better with rest. - Related Data Allergies/Adverse Reactions: Latex, Natural Rubber Allergy (Verified 02/12/20 13:45) Home Medications: albuterol inhaler. steriods. metformin. control alyacen Past Medical History - General Information source: Patient - Social History Smoking Status: Never Smoker Chew tobacco use (# tins/day): No Frequency of alcohol use: Occasional Drug Abuse: None Family History: Reviewed & Not Pertinent Patient has homicidal ideation: No - Past Medical History Cardiac Medical History: Reports: Hx Hypertension Pulmonary Medical History: Reports: Hx Asthma Endocrine Medical History: Reports: Hx Diabetes Mellitus Type 2 Renal/ Medical History: Denies: Hx Peritoneal Dialysis Psychiatric Medical History: Reports: Hx Anxiety Past Surgical History: Reports: Hx Oral Surgery - wisdom teeth - Immunizations Hx Diphtheria, Pertussis, Tetanus Vaccination: Yes Review of Systems - Review of Systems Constitutional: denies: Chills, Fever Cardiovascular: denies: Chest pain, Palpitations Respiratory: Cough, Short of breath -: Yes All other systems reviewed and negative Physical Exam - Vital signs Vitals: Temp Pulse Resp BP Pulse Ox 98.9 F 98 20 133/81 H 98 02/12/20 13:39 02/12/20 13:39 02/12/20 13:39 02/12/20 13:39 02/12/20 13:39 Interpretation: Normal - General General appearance: Appears well, Alert - HEENT Head: Normocephalic, Atraumatic Eyes: Normal Pupils: PERRL - Respiratory Respiratory status: No respiratory distress Chest status: Nontender Breath sounds: Normal Chest palpation: Normal - Cardiovascular Rhythm: Regular Heart sounds: Normal auscultation Murmur: No - Abdominal Inspection: Normal Distension: No distension Bowel sounds: Normal Tenderness: Nontender Organomegaly: No organomegaly - Back Back: Normal, Nontender - Extremities General upper extremity: Normal inspection, Nontender, Normal color, Normal ROM, Normal temperature General lower extremity: Normal inspection, Nontender, Normal color, Normal ROM, Normal temperature, Normal weight bearing. No: Mimi's sign - Neurological Neuro grossly intact: Yes Cognition: Normal Orientation: AAOx4 Michael Coma Scale Eye Opening: Spontaneous [place] Coma Scale Verbal: Oriented [place] Coma Scale Motor: Obeys Commands Michael Coma Scale Total: 15 Speech: Normal Motor strength normal: LUE, RUE, LLE, RLE Sensory: Normal - Psychological Associated symptoms: Normal affect, Normal mood - Skin Skin Temperature: Warm Skin Moisture: Dry Skin Color: Normal Course - Re-evaluation Re-evalutation: 02/12/20 19:36 Patient presents stating that she feels like she is not improving with the steroids and inhaler. Her testing comes back positive for rhinovirus. CT scan shows no evidence of pulmonary embolism. I think at this time patient can be discharged home to continue outpatient therapy and follow-up with her primary care physician. - Vital Signs Vital signs: Temp Pulse Resp BP Pulse Ox 98.9 F 98 20 133/81 H 100 02/12/20 13:39 02/12/20 13:39 02/12/20 13:39 02/12/20 13:39 02/12/20 16:52 - Laboratory Results Result Diagrams: 02/12/20 16:42 02/12/20 16:42 Laboratory Results Interpreted: 02/12/20 02/12/20 02/12/20 16:42 16:42 16:42 WBC 13.4 H MCV 78 L MCH 25.7 L RDW 15.0 H Absolute Neuts (auto) 9.5 H Sodium 136.6 L Glucose 205 H AST 40 H ALT 48 H Entero/Rhino (PCR) DETECTED H Critical Laboratory Results Reviewed: No Critical Results - Radiology Results Critical Radiology Results Reviewed: No Critical Results Discharge - Discharge Clinical Impression: Rhinovirus infection URI (upper respiratory infection) Qualifiers: URI type: unspecified URI Qualified Code(s): J06.9 - Acute upper respiratory infection, unspecified Condition: Stable Disposition: HOME, SELF-CARE Instructions: Upper Respiratory Illness ([facility]) Prescriptions: Azithromycin [Zithromax 250 mg Tablet] 250 mg PO ASDIR PRN #6 tablet PRN Reason: Forms: Return to Work Referrals: [facility] [Primary Care Provider] - Follow up in 3-5 days
--- NOTE | 2020-02-12 19:33 | RADIOLOGY REPORT (SQ) ---
EXAM DESCRIPTION: CTA CHEST IMAGES COMPLETED DATE/TIME: 02/12/2020 4:04 pm REASON FOR STUDY: sob COMPARISON: Single-view chest same date. TECHNIQUE: CT scan of the chest performed using helical scanning technique with dynamic intravenous contrast injection. Images reviewed with lung, soft tissue and bone windows. Reconstructed coronal and sagittal MPR images reviewed. Additional 3 dimensional post-processing performed to develop Maximal Intensity Projection images ([place] P). All images stored on PACS. All CT scanners at this facility use dose modulation, iterative reconstruction, and/or weight based d osing when appropriate to reduce radiation dose to as low as reasonably achievable (ALARA). [facility]: Dose Right [facility]: CareDose [facility]: Dose Right [facility]: Teradose 4D [facility]: ADOP CONTRAST TYPE AND DOSE: contrast/concentration: Isovue 350.00 mmol/ml; Total Contrast Delivered: 71. 0 ml; Total Saline Delivered: 75.0 ml Contrast bolus adequate for pulmonary arteries and aorta. RENAL FUNCTION: None required. The patient is less than 50 years old. RADIATION DOSE: CT Rad equipment meets quality standard of care and radiation dose reduction techniq ues were employed. CTDIvol: 9.9 - 28.7 mGy. DLP: 1027 mGy-cm. . LIMITATIONS: None. FINDINGS: LUNGS AND PLEURA: No masses, suspicious opacities, or pneumothorax. No pleural effusions or pleural calcifications. AORTA AND GREAT VESSELS: No aneurysm. No dissection. HEART: No pericardial effusion. No significant coronary artery calcifications. PULMONARY ARTERIES: No emboli visualized in the main pulmonary arteries or the segmental branches. HILAR AND MEDIASTINAL STRUCTURES: No identified masses or abnormal nodes. HARDWARE: None in the chest. UPPER ABDOMEN: No significant findings. Limited exam. THYROID AND OTHER SOFT TISSUES: No masses. No adenopathy. BONES: No acute or significant finding. 3D MIPS: Confirm above findings. OTHER: No other significant finding. IMPRESSION: NORMAL CTA OF THE CHEST. NO PULMONARY EMBOLI. COMMENT: Quality ID # [id number]: Final reports with documentation of one or more dose reduction techniques (e.g., Automated exposure control, adjustment of the mA and/or kV according to patient size, use of iterative reconstruction technique) TECHNICAL DOCUMENTATION: JOB ID: [id number] [employer]- All Rights Reserved Reading location - IP/workstation name: [email or web address]
[2020-02-12 19:49] VITALS: BP 125/92
== END 2020-02-12 19:50 | disposition home or self-care (01) ==
LOC: ER 13:06 → MERGE 13:06 → ER 19:50
DX: J06.9 Acute upper respiratory infection, unspecified (principal); B34.8 Other viral infections of unspecified site; R06.02 Shortness of breath; R51.9 Headache, unspecified; I10 Essential (primary) hypertension; E11.9 Type 2 diabetes mellitus without complications; Z20.828 Contact with and (suspected) exposure to other viral communicable diseases; Z91.040 Latex allergy status
CPT/HCPCS: 93005; 99285; 36415; 85025; 0202U ×23; 80053; 84484; 83880; 71045; 71275; 93010

== ENCOUNTER 2020-02-29 13:37 | Emergency (ER) | payer SELFPAY ==
[2020-02-29 13:44] VITALS: BP 169/93
--- NOTE | 2020-02-29 14:59 | ER Document Report ---
ED Medical Screen (RME) - General Chief Complaint: Shortness Of Breath Stated Complaint: BLOOD PRESSURE ISSUE, LEFT SIDE TIGHTNESS IN CHEST Time Seen by Provider: 02/29/20 14:51 Primary Care Provider: [facility] [Primary Care Provider] - Follow up as needed Notes: Patient is a 29-year-old female presents emergency department with shortness of breath and concern for high blood pressure. Patient states that she continues to have shortness of breath from her previous visit here in the emergency department from January. States that she continues to be short of breath. Denies any contact with anybody who tested positive for COVID-19. Exam: No respiratory distress noted. I have greeted and performed a rapid initial assessment of this patient. A comprehensive ED assessment and evaluation of the patient, analysis of test results and completion of medical decision making process will be conducted by an additional ED providers. TRAVEL OUTSIDE OF THE [place] IN LAST 30 DAYS: No - Related Data Allergies/Adverse Reactions: No Known Allergies Allergy (Unverified 03/16/19 00:34) Past Medical History Pulmonary Medical History: Reports: Hx Asthma Endocrine Medical History: Reports: Hx Diabetes Mellitus Type 1, Hx Diabetes Mellitus Type 2 Musculoskeltal Medical History: Reports Hx Arthritis Physical Exam - Vital signs Vitals: Temp Pulse Resp BP Pulse Ox 98.6 F 98 22 H 169/93 H 98 02/29/20 13:42 02/29/20 13:42 02/29/20 13:42 02/29/20 13:42 02/29/20 13:42 Course - Vital Signs Vital signs: Temp Pulse Resp BP Pulse Ox 98.6 F 98 22 H 169/93 H 98 02/29/20 13:42 02/29/20 13:42 02/29/20 13:42 02/29/20 13:42 02/29/20 13:42 - Laboratory Results Result Diagrams: 02/29/20 17:20 02/29/20 17:20 Laboratory Results Interpreted: 02/29/20 02/29/20 17:20 17:20 WBC 12.2 H MCV 78 L MCH 25.8 L RDW 14.8 H Absolute Neuts (auto) 9.0 H BUN 5 L Glucose 126 H Doctor's Discharge - Discharge Disposition: AGAINST MEDICAL ADVICE Referrals: [facility] [Primary Care Provider] - Follow up as needed
--- NOTE | 2020-02-29 15:50 | RADIOLOGY REPORT (SQ) ---
EXAM DESCRIPTION: CHEST SINGLE VIEW IMAGES COMPLETED DATE/TIME: 02/29/2020 3:31 pm REASON FOR STUDY: shortness of breath COMPARISON: 02/10/2020. EXAM PARAMETERS: NUMBER OF VIEWS: One view. TECHNIQUE: Single frontal radiographic view of the chest acquired. RADIATION DOSE: NA LIMITATIONS: None. FINDINGS: LUNGS AND PLEURA: No opacities, masses or pneumothorax. No pleural effusion. MEDIASTINUM AND HILAR STRUCTURES: No masses. Contour normal. HEART AND VASCULAR STRUCTURES: Heart normal in size. Normal vasculature. BONES: No acute findings. HARDWARE: None in the chest. OTHER: No other significant finding. IMPRESSION: NO ACUTE RADIOGRAPHIC FINDING IN THE CHEST. TECHNICAL DOCUMENTATION: JOB ID: [id number] 2010 [employer]- All Rights Reserved Reading location - IP/workstation name: [email or web address]
[2020-02-29 16:30] LABS: APPEARANCE,URINE CLEAR; BILIRUBIN,URINE NEGATIVE (NEGATIVE); COLOR,URINE COLORLESS; GLUCOSE, URINE NEGATIVE (NEGATIVE); KETONES,URINE NEGATIVE (NEGATIVE); LEUKOCYTE ESTERASE,URINE NEGATIVE (NEGATIVE); NITRITE,URINE NEGATIVE (NEGATIVE); PROTEIN,URINE NEGATIVE (NEGATIVE); URINE SPECIFIC GRAVITY 1.003; UROBILINOGEN,URINE NEGATIVE mg/dL (<2.0)
[2020-02-29 16:59] LABS: A TYPE INFLUENZA AG NEGATIVE (NEGATIVE); B INFLUENZA AG NEGATIVE (NEGATIVE)
[2020-02-29 17:30] LABS: ABSOLUTE BASOPHILS # (AUTO) 0.1 10^3/uL (0.0-0.2); ABSOLUTE EOSINOPHILS # (AUTO) 0.1 10^3/uL (0.0-0.6); ABSOLUTE LYMPHOCYTES (AUTO) 2.6 10^3/uL (0.5-4.7); ABSOLUTE MONOCYTES (AUTO) 0.6 10^3/uL (0.1-1.4); BASOPHILS % (AUTO) 0.7 % (0-2); EOSINOPHILS % (AUTO) 0.4 % (0-6); HEMATOCRIT 40.8 % (36.0-47.0); HEMOGLOBIN 13.5 g/dL (12.0-15.5); LYMPHOCYTES % (AUTO) 20.9 % (13-45); MEAN CORPUSCULAR HEMOGLOBIN 25.8 pg (27.0-33.4); MEAN CORPUSCULAR HGB CONC 33.1 g/dL (32.0-36.0); MEAN CORPUSCULAR VOLUME 78 fl (80-97); MONOCYTES % (AUTO) 4.8 % (3-13); PLATELET COUNT 218 10^3/uL (150-450); RED BLOOD COUNT 5.23 10^6/uL (3.72-5.28); RED CELL DISTRIBUTION WIDTH 14.8 % (11.5-14.0); SEGMENTED NEUTROPHILS % (AUTO) 73.2 % (42-78); TOTAL CELLS COUNTED % (AUTO) 100 %; WHITE BLOOD COUNT 12.2 10^3/uL (4.0-10.5)
--- NOTE | 2020-02-29 17:35 | EKG REPORT ---
SEVERITY:- NORMAL ECG - SINUS RHYTHM : Confirmed by: Earl Rico MD 29-Feb-2020 17:34:24
[2020-02-29 17:55] LABS: ALKALINE PHOSPHATASE 107 U/L (38-126); ANION GAP 7 (5-19); ASPARTATE AMINO TRANSFERASE 26 U/L (14-36); BLOOD UREA NITROGEN 5 mg/dL (7-20); CALCIUM 9.7 mg/dL (8.4-10.2); CARBON DIOXIDE 28 mmol/L (22-30); CHLORIDE 103 mmol/L (98-107); GLUCOSE 126 mg/dL (75-110); POTASSIUM 4.3 mmol/L (3.6-5.0); TOTAL PROTEIN 7.5 g/dL (6.3-8.2)
== END 2020-02-29 18:42 | disposition left against medical advice (07) ==
LOC: ER 13:37
DX: J45.909 Unspecified asthma, uncomplicated (principal); R06.02 Shortness of breath; E11.9 Type 2 diabetes mellitus without complications; Z53.20 Procedure and treatment not carried out because of patient's decision for unspecified reasons
CPT/HCPCS: 36415; 71045; 80053; 81001; 81025; 85025; 87804; 93005; 93010; 99281; 99285

== ENCOUNTER 2020-03-04 21:26 | Emergency (ER) | payer SELFPAY ==
--- NOTE | 2020-03-04 22:46 | ER Document Report ---
ED Medical Screen (RME) - General Chief Complaint: Chest Pain Stated Complaint: CHEST PAIN, HIGH HEART RATE Time Seen by Provider: 03/04/20 22:39 Primary Care Provider: SUSAN DAS [Primary Care Provider] - Follow up as needed Mode of Arrival: Ambulatory Information source: Patient TRAVEL OUTSIDE OF THE [place] IN LAST 30 DAYS: No - HPI Patient complains to provider of: CP, SOB, elevated BP, ST Notes: 03/04/20 22:44 Patient here with complaints of intermittent chest pain and shortness of breath with elevated blood pressure and occasional episodes of dizziness. The patient was seen in the emergency department for this in January, she then came back at 28 February and ended up leaving without completely being seen. She states that she went out to her car to get something and they did not realize that she had left. She states that she has been having elevated blood pressure recently but does not currently take any blood pressure medication. She denies any unilateral numbness, tingling, weakness at this time. Exam: Nontoxic, no distress. Lungs clear and equal throughout. Heart sounds normal. Nonfocal neuro exam. Few scattered anterior cervical lymph nodes noted. Mild erythema to the posterior pharynx without exudate or peritonsillar abscess. An initial examination was made on the patient as part of the triage process, and it was determined a more comprehensive evaluation was necessary. Initial orders were placed and patient was transferred to another provider in the ED who assumed care and finished evaluation and plan. - Related Data Allergies/Adverse Reactions: No Known Allergies Allergy (Verified 03/04/20 22:38) Past Medical History Pulmonary Medical History: Reports: Hx Asthma Endocrine Medical History: Reports: Hx Diabetes Mellitus Type 1, Hx Diabetes Mellitus Type 2 Musculoskeltal Medical History: Reports Hx Arthritis Doctor's Discharge - Discharge Referrals: SUSAN DAS [Primary Care Provider] - Follow up as needed
[2020-03-04 23:12] LABS: ABSOLUTE BASOPHILS # (AUTO) 0.1 10^3/uL (0.0-0.2); ABSOLUTE EOSINOPHILS # (AUTO) 0.1 10^3/uL (0.0-0.6); ABSOLUTE LYMPHOCYTES (AUTO) 2.6 10^3/uL (0.5-4.7); ABSOLUTE MONOCYTES (AUTO) 0.7 10^3/uL (0.1-1.4); ABSOLUTE NEUT (AUTO) 9.2 10^3/uL (1.7-8.2); BASOPHILS % (AUTO) 0.6 % (0-2); EOSINOPHILS % (AUTO) 0.7 % (0-6); HEMATOCRIT 40.9 % (36.0-47.0); HEMOGLOBIN 13.5 g/dL (12.0-15.5); LYMPHOCYTES % (AUTO) 20.6 % (13-45); MEAN CORPUSCULAR HEMOGLOBIN 25.6 pg (27.0-33.4); MEAN CORPUSCULAR HGB CONC 32.9 g/dL (32.0-36.0); MEAN CORPUSCULAR VOLUME 78 fl (80-97); MONOCYTES % (AUTO) 5.3 % (3-13); PLATELET COUNT 215 10^3/uL (150-450); RED BLOOD COUNT 5.26 10^6/uL (3.72-5.28); RED CELL DISTRIBUTION WIDTH 14.6 % (11.5-14.0); SEGMENTED NEUTROPHILS % (AUTO) 72.8 % (42-78); TOTAL CELLS COUNTED % (AUTO) 100 %; WHITE BLOOD COUNT 12.6 10^3/uL (4.0-10.5)
[2020-03-04 23:27] LABS: ALBUMIN 3.9 g/dL (3.5-5.0); ALKALINE PHOSPHATASE 103 U/L (38-126); ANION GAP 6 (5-19); ASPARTATE AMINO TRANSFERASE 23 U/L (14-36); BILIRUBIN,DIRECT 0.1 mg/dL (0.0-0.4); BILIRUBIN,TOTAL 0.6 mg/dL (0.2-1.3); BLOOD UREA NITROGEN 8 mg/dL (7-20); CARBON DIOXIDE 30 mmol/L (22-30); CHLORIDE 100 mmol/L (98-107); GLUCOSE 247 mg/dL (75-110); POTASSIUM 4.1 mmol/L (3.6-5.0); TOTAL PROTEIN 7.4 g/dL (6.3-8.2)
[2020-03-04 23:39] LABS: NT PRO BNP 17 pg/mL (<125)
[2020-03-04 23:41] LABS: TROPONIN I < 0.012 ng/mL
--- NOTE | 2020-03-04 23:51 | RADIOLOGY REPORT (SQ) ---
PA and lateral chest radiograph: 03/04/2020 10:49 PM RN SUPPORT SERVICES History: 29-year old patient with chest pain. Comparison: Chest radiograph performed 02/29/2020 Findings: The cardiomediastinal silhouette is normal in size. No pneumothorax is seen. No acute airspace opacities are seen. No discrete pleural effusion is apparent. Impression: No acute airspace opacities are seen.
--- NOTE | 2020-03-05 00:48 | EKG REPORT ---
SEVERITY:- NORMAL ECG - SINUS RHYTHM : Confirmed by: Lelia Cuello 05-Mar-2020 00:47:49
[2020-03-05 03:21] VITALS: BP 170/94
== END 2020-03-05 06:06 | disposition left against medical advice (07) ==
LOC: ER 21:26
DX: R07.9 Chest pain, unspecified (principal); R06.02 Shortness of breath; R42 Dizziness and giddiness; E11.9 Type 2 diabetes mellitus without complications
CPT/HCPCS: 36415; 71046; 80053; 83880; 84484; 85025; 87070; 87880; 93005; 93010; 99281

== ENCOUNTER 2020-03-06 13:53 | Emergency (ER) | payer SELFPAY ==
--- NOTE | 2020-03-06 15:23 | ER Document Report ---
ED Medical Screen (RME) - General Chief Complaint: Chest Pain Stated Complaint: CHEST PAIN Time Seen by Provider: 03/06/20 15:16 [facility]: [facility] [Primary [facility] Provider] - Follow up as needed Mode of Arrival: Ambulatory Information source: Patient Notes: HPI; 29-year-old female presents to the emergency room with worsening palpitations along with abdominal and back pain that started earlier today. Patient has been seen in the emergency room previously for chest pain. Has had a negative cardiac work-up. States she saw her medical authorization specialist yesterday who told her to take Motrin and return in 1 week for follow-up. States she took Motrin prior to going to work which did not help her symptoms and now she is having worsening palpitations with abdominal pain which is new. States the pain is intermittent sharp and stabbing. She denies any nausea, vomiting, no urinary symptoms. PE: Alert and oriented x3. Lungs: Clear to auscultation without rales, rhonchi, wheezes. Heart: Tachycardic without murmurs, rubs, gallops. I have greeted and performed a rapid initial assessment of this patient. A comprehensive ED assessment and evaluation of the patient, analysis of test results and completion of the medical decision making process will be conducted by additional ED providers. I have specifically instructed the patient or fami ly members with the patient to immediately return to any nursing staff should anything change in the patient's condition or with their chief complaint. TRAVEL OUTSIDE OF THE [place] IN LAST 30 DAYS: No - Related Data Allergies/Adverse Reactions: Latex, Natural Rubber Allergy (Verified 03/06/20 15:11) Past Medical History - Social History Frequency of alcohol use: Occasional - Past Medical History Cardiac Medical History: Reports: Hx Hypertension Pulmonary Medical History: Reports: Hx Asthma Endocrine Medical History: Reports: Hx Diabetes Mellitus Type 1, Hx Diabetes Gretta litus Type 2 Renal/ Medical History: Denies: Hx Peritoneal Dialysis Musculoskeltal Medical History: Reports Hx Arthritis Psychiatric Medical History: Reports: Hx Anxiety Past Surgical History: Reports: Hx Oral Surgery - wisdom teeth - Immunizations Hx Diphtheria, Pertussis, Tetanus Vaccination: Yes Physical Exam - Vital signs Vitals: Temp Pulse Resp BP Pulse Ox 99.6 F 116 H 16 137/82 H 98 03/06/20 14:01 03/06/20 14:01 03/06/20 14:01 03/06/20 14:01 03/06/20 14:01 Course - Vital Signs Vital signs: Temp Pulse Resp BP Pulse Ox 99.6 F 116 H 16 137/82 H 98 03/06/20 14:01 03/06/20 14:01 03/06/20 14:01 03/06/20 14:01 03/06/20 14:01 Doctor's Discharge - Discharge Referrals: [facility] [Primary Care Provider] - Follow up as needed
[2020-03-06 15:49] LABS: ABSOLUTE LYMPHOCYTES (AUTO) 1.1 10^3/uL (0.5-4.7); ABSOLUTE MONOCYTES (AUTO) 1.2 10^3/uL (0.1-1.4); ABSOLUTE NEUT (AUTO) 6.8 10^3/uL (1.7-8.2); BASOPHILS % (AUTO) 0.3 % (0-2); EOSINOPHILS % (AUTO) 0.4 % (0-6); HEMATOCRIT 39.4 % (36.0-47.0); HEMOGLOBIN 13.1 g/dL (12.0-15.5); LYMPHOCYTES % (AUTO) 12.5 % (13-45); MEAN CORPUSCULAR HEMOGLOBIN 25.7 pg (27.0-33.4); MEAN CORPUSCULAR HGB CONC 33.4 g/dL (32.0-36.0); MEAN CORPUSCULAR VOLUME 77 fl (80-97); MONOCYTES % (AUTO) 12.8 % (3-13); PLATELET COUNT 197 10^3/uL (150-450); RED BLOOD COUNT 5.11 10^6/uL (3.72-5.28); RED CELL DISTRIBUTION WIDTH 14.7 % (11.5-14.0); TOTAL CELLS COUNTED % (AUTO) 100 %; WHITE BLOOD COUNT 9.1 10^3/uL (4.0-10.5)
--- NOTE | 2020-03-06 15:54 | RADIOLOGY REPORT (SQ) ---
EXAM DESCRIPTION: CHEST 2 VIEWS IMAGES COMPLETED DATE/TIME: 03/06/2020 3:37 pm REASON FOR STUDY: chest pain COMPARISON: 03/04/2020 TECHNIQUE: Frontal and lateral radiographic views of the chest acquired. NUMBER OF VIEWS: Two view. LIMITATIONS: None. FINDINGS: LUNGS AND PLEURA: No opacities, masses or pneumothorax. No pleural effusion. MEDIASTINUM AND HILAR STRUCTURES: No masses or contour abnormalities. HEART AND VASCULAR STRUCTURES: Heart normal size. No evidence for failure. BONES: No acute findings. HARDWARE: None in the chest. OTHER: No other significant finding. IMPRESSION: NO SIGNIFICANT RADIOGRAPHIC FINDING IN THE CHEST. TECHNICAL DOCUMENTATION: JOB ID: [id number] 2010 [employer]- All Rights Reserved Reading location - IP/workstation name: [email or web address]
[2020-03-06 16:11] LABS: ALBUMIN 3.9 g/dL (3.5-5.0); ALKALINE PHOSPHATASE 102 U/L (38-126); ANION GAP 5 (5-19); ASPARTATE AMINO TRANSFERASE 28 U/L (14-36); BILIRUBIN,DIRECT 0.1 mg/dL (0.0-0.4); BILIRUBIN,TOTAL 0.8 mg/dL (0.2-1.3); BLOOD UREA NITROGEN 4 mg/dL (7-20); CALCIUM 9.6 mg/dL (8.4-10.2); CARBON DIOXIDE 28 mmol/L (22-30); CHLORIDE 102 mmol/L (98-107); GLUCOSE 125 mg/dL (75-110); POTASSIUM 4.9 mmol/L (3.6-5.0); TOTAL PROTEIN 7.2 g/dL (6.3-8.2)
--- NOTE | 2020-03-06 17:03 | RADIOLOGY REPORT (SQ) ---
EXAM DESCRIPTION: CT ABD/PELVIS WITH IV ONLY IMAGES COMPLETED DATE/TIME: 03/06/2020 4:38 pm REASON FOR STUDY: abdominal pain COMPARISON: 2017 TECHNIQUE: CT scan of the abdomen and pelvis performed using helical scanning technique with dynamic intravenous contrast injection. No oral contrast. Images reviewed with lung, soft tissue, and bone windows. Reconstructed coronal and sagittal MPR images reviewed. Delayed images for evaluation of the urinary system also acquired. All images stored on PACS. All CT scanners at this facility use dose modulation, iterative reconstruction, and/or weight based d osing when appropriate to reduce radiation dose to as low as reasonably achievable (ALARA). [facility]: Dose Right [facility]: CareDose [facility]: Dose Right [facility]: Teradose 4D [facility]: CAPS [employer]prise CONTRAST TYPE AND DOSE: contrast/concentration: Isovue 350.00 mmol/ml; Total Contrast Delivered: 100 .0 ml; Total Saline Delivered: 72.0 ml RENAL FUNCTION: BUN 4 creatinine 0.6 RADIATION DOSE: CT Rad equipment meets quality standard of care and radiation dose reduction techniq ues were employed. CTDIvol: 17.6 - 20.7 mGy. DLP: 2098 mGy-cm.. LIMITATIONS: None. FINDINGS: LOWER CHEST: No significant findings. No nodules or infiltrates. LIVER: Normal size. No masses. No dilated ducts. SPLEEN: Normal size. No focal lesions. PANCREAS: No masses. No significant calcifications. No adjacent inflammation or peripancreatic fluid collections. Pancreatic duct not dilated. GALLBLADDER: No identified stones by CT criteria. No inflammatory changes to suggest cholecystitis. ADRENAL GLANDS: No significant masses or asymmetry. RIGHT KIDNEY AND URETER: No solid masses. No significant calcifications. No hydronephrosis or hyd roureter. LEFT KIDNEY AND URETER: No solid masses. No significant calcifications. No hydronephrosis or hydr oureter. AORTA AND VESSELS: No aneurysm. No dissection. Renal arteries, SMA, celiac without stenosis. RETROPERITONEUM: No retroperitoneal adenopathy, hemorrhage or masses. BOWEL AND PERITONEAL CAVITY: No masses or inflammatory changes. No free fluid or peritoneal masses. APPENDIX: Normal. PELVIS: There is a 4.5 cm right adnexal cyst. No free fluid. No solid masses. ABDOMINAL WALL: No masses. No hernias. BONES: No significant or acute findings. OTHER: No other significant finding. IMPRESSION: There is a right ovarian cyst that is almost certainly benign. No additional imaging is required for this. There are no findings to explain left-sided abdominal pain. TECHNICAL DOCUMENTATION: JOB ID: [id number] Quality ID # [id number]: Final reports with documentation of one or more dose reduction techniques (e.g., Au tomated exposure control, adjustment of the mA and/or kV according to patient size, use of iterative reconstruction technique) 2010 [email or web address]- All Rights Reserved Reading location - IP/workstation name: [email or web address]
--- NOTE | 2020-03-06 20:01 | ER Document Report ---
ED General - General Chief Complaint: Chest Pain Stated Complaint: CHEST PAIN Time Seen by Provider: 03/06/20 15:16 Primary Care Provider: [facility] [Primary Care Provider] - Follow up as needed Mode of Arrival: Ambulatory TRAVEL OUTSIDE OF THE [place] IN LAST 30 DAYS: No - HPI Notes: History is as documented by the midlevel provider and I confirmed the pertinent positives and negatives of the history when I interviewed the patient. She has had an extensive cardiac work-up and in fact just had a cardiology consult yesterday. It was felt that she did not have any cardiac cause of any of her symptoms. 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 Her blood pressure was also mildly elevated so she decided to come in again. She describes some left anterolateral chest wall pain and some left upper quadrant abdominal pain. This is very nonspecific not related to exertion or relieved by rest and has no characteristics of any sort of anginal symptoms. She also relates she has been under a number of personal stressors this year with the in her family, significant economic stressors that left her homeless for period of time, and ongoing medical issues for which she is seen at the [facility], [facility]. She denies any fever or chills. She denies any cough or shortness of breath. She is otherwise in her usual state of health. - Related Data Allergies/Adverse Reactions: Latex, Natural Rubber Allergy (Verified 03/06/20 15:11) Past Medical History - General Information source: Patient - Social History Smoking Status: Never Smoker Frequency of alcohol use: Occasional Family History: Reviewed & Not Pertinent - Medical History Medical History: Other Notes: Past medical history as documented in the electronic health record is reviewed. - Past Medical History Cardiac Medical History: Reports: Hx Hypertension Pulmonary Medical History: Reports: Hx Asthma Endocrine Medical History: Reports: Hx Diabetes Mellitus Type 1, Hx Diabetes Mellitus Type 2 Renal/ Medical History: Denies: Hx Peritoneal Dialysis Musculoskeletal Medical History: Reports Hx Arthritis Psychiatric Medical History: Reports: Hx Anxiety Past Surgical History: Reports: Hx Oral Surgery - wisdom teeth - Immunizations Hx Diphtheria, Pertussis, Tetanus Vaccination: Yes Review of Systems - Review of Systems Notes: All other systems reviewed are negative or noncontributory except as noted in the history of present illness. Physical Exam - Vital signs Vitals: Temp Pulse Resp BP Pulse Ox 99.6 F 116 H 16 137/82 H 98 03/06/20 14:01 03/06/20 14:01 03/06/20 14:01 03/06/20 14:03/06/20 14:01 - Notes Notes: General: Well-developed moderately obese female no acute distress. Vital signs and nursing chief complaint are reviewed. HEENT: Centrally normal to inspection. Neck: Trachea midline no adenopathy no JVD. Chest: Nontender to palpation. Lungs clear to auscultation all plunkett. Heart: Regular rate and rhythm no murmur or gallop. Abdomen: Soft nontender no muscular megaly rigidity or guarding. Extremities: Without clubbing cyanosis edema or deformity. Skin: Warm moist good turgor no rashes. Neuro: Alert and oriented x3. Cranial nerves II through XII are intact. No focal motor or sensory deficits are noted. Course - Re-evaluation Re-evalutation: 03/06/20 20:00 Patient rested comfortably throughout her stay. Her CT scan chest x-ray EKG and all of her labs were normal or nondiagnostic. We had a lengthy discussion about her symptoms. At this point I think her evaluation probably should include an outpatient work-up for neuroendocrine tumors. The possibility of pheochromocytoma or some other neuroendocrine abnormality, well extremely rare, certainly exist in patients with these kinds of symptoms. I reassured her that her symptoms were not dangerous and that she did not need to worry about sudden cardiac or other life-threatening problems in the immediate future. We had a lengthy and pleasant discussion and all of her questions were answered. - Vital Signs Vital signs: Temp Pulse Resp BP Pulse Ox 99.6 F 116 H 23 H 117/72 98 03/06/20 14:01 03/06/20 14:01 03/06/20 18:51 03/06/20 18:51 03/06/20 18:53 - Laboratory Results Result Diagrams: 03/06/20 15:30 03/06/20 15:30 Laboratory Results Interpreted: 03/06/20 03/06/20 15:30 15:30 MCV 77 L MCH 25.7 L RDW 14.7 H Lymph % (Auto) 12.5 L Sodium 135.0 L BUN 4 L Glucose 125 H Critical Laboratory Results Reviewed: No Critical Results - Radiology Results Radiology Results Interpreted: 03/06/20 20:00 Chest X-Ray 03/06/20 15:21 IMPRESSION: NO SIGNIFICANT RADIOGRAPHIC FINDING IN THE CHEST. Abdomen/Pelvis CT 03/06/20 15:22 IMPRESSION: There is a right ovarian cyst that is almost certainly benign. No additional imaging is required for this. There are no findings to explain left- sided abdominal pain. Critical Radiology Results Reviewed: No Critical Results - EKG Interpretation by Me EKG shows normal: Sinus rhythm Rate: Normal Rhythm: NSR Discharge - Discharge Clinical Impression: Atypical chest pain, Palpitations Condition: Good Disposition: HOME, SELF-CARE Instructions: Chest Pain of Unclear Cause ([facility]) Additional Instructions: Continue your current medications as prescribed. See your doctor to discuss the possibility of neuroendocrine tumors such as pheochromocytoma. There is specialized outpatient testing that can be done to diagnose these problems. Return to the emergency department if any other concerning symptoms develop. Referrals: [facility] [Primary Care Provider] - Follow up as needed
[2020-03-06 20:30] VITALS: BP 134/92
--- NOTE | 2020-03-06 23:57 | EKG REPORT ---
SEVERITY:- BORDERLINE ECG - SINUS TACHYCARDIA BORDERLINE T ABNORMALITIES, INFERIOR LEADS : Confirmed by: Lelia Cuello 06-Mar-2020 23:55:43
== END 2020-03-06 20:59 | disposition home or self-care (01) ==
LOC: ER 13:53
DX: R07.89 Other chest pain (principal); R00.2 Palpitations; N83.201 Unspecified ovarian cyst, right side; I10 Essential (primary) hypertension; J45.909 Unspecified asthma, uncomplicated; E11.9 Type 2 diabetes mellitus without complications; E66.9 Obesity, unspecified; Z63.4 Disappearance and death of family member; Z91.040 Latex allergy status
CPT/HCPCS: 36415; 71046; 74177; 80053; 84484; 84703; 85025; 93005; 93010; 99285

== ENCOUNTER 2020-03-12 14:38 | Emergency (ER) | payer SELFPAY ==
[2020-03-12] MEDS ORDERED: DILTIAZEM HCL INJ 25 MG/5 ML VIAL IV ONE ×2 (15:00→15:29)
[2020-03-12] MEDS ORDERED: NORMAL SALINE 1000 ML 1,000 ML IV ONE (15:00)
--- NOTE | 2020-03-12 15:07 | ER Document Report ---
ED Cardiac - General Chief Complaint: Chest Pain Stated Complaint: CHEST PAIN,LEFT ARM PAIN Time Seen by Provider: 03/12/20 14:59 Primary Care Provider: [facility] [NO LOCAL MD] - Follow up as needed Mode of Arrival: Wheelchair Information source: Patient Notes: 03/12/20 15:07 - ED Nursing Note by LINA SMITH Acct Num: [id number] : 1990 Patient Age: 29 Pt. reports to the ED via POV with C/O fast heart rate and chest pressure. Pt. states she was driving and felt a pressure in her forehead and the right side of her face. Pt. states she felt dizzy. Pt. states this has happened in the past. pt. states she took 2 250mg tablets of magnesium. Pt. states she just saw a directory compiler and everything was inconclusive. pt. HX of DM with oral metformin. Pt. HX of smoking cigarettes and marijuana. Pt. A+O x4. respirations even and unlabored. MY NOTES 29-year-old black female arrives by POV driving herself to the ER after having 2 to 3 hours of rapid heart rate and diaphoresis across her forehead. She has some chest pain as well. It feels like a stabbing pain in the center of her chest. She denies any referral. She denies any thyroid problems. She took 2 tablets of 250 mg of magnesium just prior to arrival. She was driving her friend and advised to her friend that she has to make a quick stop at the ER because of her chest pains. Patient reports she has not been doing any Sudafed any cocaine any methamphetamines or any adrenergic type medications. She denies any alcohol use. She works at [employer]. She has a [employer] T-shirt on at this time. Patient also admits for the last 4 days she has had a increased sweatiness and tiredness. She denies any cough or coronavirus but has a right neck observable 3 cm lymph node. She also reports she has increased sweating and her forehead has some acneform lesions. Patient denies any sore throat she denies any nausea or vomiting. She has some mild shortness of breath. She denies any diarrhea nuchal rigidity back pain cephalgias. She denies any overuse or weight loss or weight gain. She has a endomorphic body habitus. Also patient reports for the last 1 week she has had sinus congestion and coughing up phlegm. Patient reports she used to have a lot of asthma as well. Patient saw Dr. Rico this morning in his office. She advised that he felt of her chest and listen to her heart. TRAVEL OUTSIDE OF THE [place] IN LAST 30 DAYS: No - HPI Patient complains to provider of: Chest pain, Palpitations Use of: Alcohol. denies: Amphetamines, Bath salts, Caffeine, Cocaine, Decongestants Chest pain location: Substernal Quality of pain: Intermittent. denies: Cramping, Dull, Heaviness, Stabbing, Tearing, Throbbing, Tingling - Related Data Allergies/Adverse Reactions: Latex, Natural Rubber Allergy (Verified 03/12/20 15:05) Past Medical History - General Information source: Patient - Social History Smoking Status: Former Smoker - Patient quit smoking cigarettes 6 months ago and quit smoking weed 3 months ago. 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 She has done that now for at least a year. Cigarette use (# per day): No Chew tobacco use (# tins/day): No Smoking Education Provided: No Frequency of alcohol use: Occasional - Drinks beer on a daily basis. Drug Abuse: Marijuana Lives with: Family Family History: Reviewed & Not Pertinent Patient has suicidal ideation: No Patient has homicidal ideation: No - Past Medical History Cardiac Medical History: Reports: Hx Hypertension Pulmonary Medical History: Reports: Hx Asthma Endocrine Medical History: Reports: Hx Diabetes Mellitus Type 1, Hx Diabetes Mellitus Type 2 Renal/ Medical History: Denies: Hx Peritoneal Dialysis Musculoskeletal Medical History: Reports Hx Arthritis Psychiatric Medical History: Reports: Hx Anxiety Past Surgical History: Reports: Hx Oral Surgery - wisdom teeth - Immunizations Hx Diphtheria, Pertussis, Tetanus Vaccination: Yes Review of Systems - Review of Systems Constitutional: See HPI, Weakness EENT: No symptoms reported Cardiovascular: See HPI, Chest pain, Palpitations, Heart racing, Dizziness Respiratory: No symptoms reported Gastrointestinal: No symptoms reported Genitourinary: No symptoms reported Female Genitourinary: No symptoms reported Musculoskeletal: No symptoms reported Skin: No symptoms reported Hematologic/Lymphatic: No symptoms reported Neurological/Psychological: No symptoms reported -: Yes All other systems reviewed and negative Physical Exam - Vital signs Vitals: BP Pulse Ox 144/92 H 99 03/12/20 14:53 03/12/20 14:53 Interpretation: Tachycardic - General General appearance: Appears well, Alert - HEENT Head: Normocephalic, Atraumatic Eyes: Normal Conjunctiva: Normal Cornea: Normal Pupils: PERRL Sinus: Normal Nasal: Normal Mouth/Lips: Normal Mucous membranes: Normal Pharynx: Normal Neck: Lymphadenopathy - Lymphadenopathy of the right lateral neck around 2 cm diameter, Thyromegally - Respiratory Respiratory status: No respiratory distress Chest status: Nontender Breath sounds: Normal Chest palpation: Normal - Cardiovascular Rhythm: Tachycardia - Heart rates around 150 bpm by auscultation palpation of radial pulses and on monitor. Heart sounds: Normal auscultation Murmur: No - Abdominal Inspection: Normal Distension: No distension Bowel sounds: Normal Tenderness: Nontender Organomegaly: No organomegaly - Rectal Hemorrhoids: Other - deferred - Genitourinary Bimanuel exam: Other - Deferred - Back Back: Normal, Nontender - Extremities General upper extremity: Normal inspection, Nontender, Normal color, Normal ROM, Normal temperature General lower extremity: Normal inspection, Nontender, Normal color, Normal ROM, Normal temperature, Normal weight bearing. No: Mimi's sign - Neurological Neuro grossly intact: Yes Cognition: Normal Orientation: AAOx4 [place] Coma Scale Eye Opening: Spontaneous [place] Coma Scale Verbal: Oriented Michael Coma Scale Motor: Obeys Commands Michael Coma Scale Total: 15 Speech: Normal Motor strength normal: LUE, RUE, LLE, RLE Sensory: Normal - Psychological Associated symptoms: Normal affect, Normal mood - Skin Skin Temperature: Warm Skin Moisture: Dry Skin Color: Normal Course - Vital Signs Vital signs: Temp Pulse Resp BP Pulse Ox 98.7 F 11 L 125/85 100 03/12/20 15:01 03/12/20 16:01 03/12/20 16:01 03/12/20 16:01 - Laboratory Results Result Diagrams: 03/12/20 15:06 03/12/20 15:06 Laboratory Results Interpreted: 03/12/20 03/12/20 03/12/20 15:06 15:06 16:28 RBC 5.49 H MCV 76 L MCH 25.5 L RDW 15.0 H Sodium 135.1 L Glucose 177 H Urine Glucose (UA) 50 H Critical Laboratory Results Reviewed: Yes Attending or Supervising Physician who Reviewed Labs: JULIETA OLSON JR - Radiology Results Critical Radiology Results Reviewed: No Critical Results Attending or Supervising Physician who Reviewed Radiology: JULIETA OLSON JR - EKG Interpretation by Me EKG shows normal: Sinus rhythm Rate: Tachycardia Rhythm: NSR - Heart rate 154 bpm with sinus tachycardia and no ST elevation and no ST depression and recheck on heart rate after 5 Cardizem revealed on monitor and 95 bpm heart rate. This EKG was read by me and I agree with the EKG machine findings. Discharge - Discharge Clinical Impression: Palpitations, Tachycardia, Lymphadenopathy right neck URI (upper respiratory infection) Qualifiers: URI type: unspecified URI Qualified Code(s): J06.9 - Acute upper respiratory infection, unspecified Condition: Stable Disposition: HOME, SELF-CARE Additional Instructions: Follow-up with Dr Rico; you did see him earlier today. He will call you tomorrow morning. Please try to avoid caffeinated drinks like tea and coffee. Also try to avoid chocolate with theobromine. Try to drink tea like chamomile to help with any viral illnesses. Take antibiotics as directed. Also take low- dose propranolol to help keep heart rate down. Also take antibiotics Zithromax and Decadron for your URI and also for your lymph node right neck problem. 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 Also patient should avoid the [employer]er units because of acrolein chemical that may induce asthma as well. Prescriptions: Dexamethasone [Decadron 4 Mg Tablet] 4 mg PO DAILY #5 tablet Propranolol HCl [Inderal 20 mg Tablet] 20 mg PO HSP PRN #20 tab PRN Reason: fast heart rate Azithromycin [Zithromax 250 mg Tablet] 250 mg PO ASDIR PRN #6 tablet PRN Reason: Forms: Return to Work [facility] [NO LOCAL MD] - Follow up as needed
[2020-03-12 15:22] LABS: ABSOLUTE BASOPHILS # (AUTO) 0.1 10^3/uL (0.0-0.2); ABSOLUTE LYMPHOCYTES (AUTO) 2.4 10^3/uL (0.5-4.7); ABSOLUTE MONOCYTES (AUTO) 0.7 10^3/uL (0.1-1.4); ABSOLUTE NEUT (AUTO) 6.3 10^3/uL (1.7-8.2); BASOPHILS % (AUTO) 0.6 % (0-2); EOSINOPHILS % (AUTO) 0.3 % (0-6); HEMATOCRIT 41.8 % (36.0-47.0); LYMPHOCYTES % (AUTO) 25.4 % (13-45); MEAN CORPUSCULAR HEMOGLOBIN 25.5 pg (27.0-33.4); MEAN CORPUSCULAR HGB CONC 33.5 g/dL (32.0-36.0); MEAN CORPUSCULAR VOLUME 76 fl (80-97); MONOCYTES % (AUTO) 7.5 % (3-13); PLATELET COUNT 168 10^3/uL (150-450); RED BLOOD COUNT 5.49 10^6/uL (3.72-5.28); SEGMENTED NEUTROPHILS % (AUTO) 66.2 % (42-78); TOTAL CELLS COUNTED % (AUTO) 100 %; WHITE BLOOD COUNT 9.5 10^3/uL (4.0-10.5)
--- NOTE | 2020-03-12 15:23 | RADIOLOGY REPORT (SQ) ---
EXAM DESCRIPTION: CHEST SINGLE VIEW IMAGES COMPLETED DATE/TIME: 03/12/2020 3:12 pm REASON FOR STUDY: cp COMPARISON: 03/06/2020 NUMBER OF VIEWS: One view. TECHNIQUE: Single frontal radiographic view of the chest acquired. LIMITATIONS: None. FINDINGS: LUNGS AND PLEURA: No opacities, masses or pneumothorax. No pleural effusion. MEDIASTINUM AND HILAR STRUCTURES: No masses. Contour normal. HEART AND VASCULAR STRUCTURES: Heart normal in size. Normal vasculature. BONES: No acute findings. HARDWARE: None in the chest. OTHER: No other significant finding. IMPRESSION: NO SIGNIFICANT RADIOGRAPHIC FINDING IN THE CHEST. TECHNICAL DOCUMENTATION: JOB ID: [id number] 2010 [employer]- All Rights Reserved Reading location - IP/workstation name: [email or web address]
[2020-03-12 15:25] LABS: PROTHROMBIN TIME 12.6 SEC (11.4-15.4)
[2020-03-12 15:27] LABS: D-DIMER 0.39 ug/mL (0.00-0.50)
[2020-03-12 15:35] LABS: ALBUMIN 4.2 g/dL (3.5-5.0); ALKALINE PHOSPHATASE 112 U/L (38-126); ANION GAP 7 (5-19); ASPARTATE AMINO TRANSFERASE 28 U/L (14-36); BILIRUBIN,DIRECT 0.1 mg/dL (0.0-0.4); BILIRUBIN,TOTAL 0.8 mg/dL (0.2-1.3); BLOOD UREA NITROGEN 8 mg/dL (7-20); CALCIUM 9.6 mg/dL (8.4-10.2); CARBON DIOXIDE 26 mmol/L (22-30); CHLORIDE 102 mmol/L (98-107); CREATINE KINASE 42 U/L (30-135); GLUCOSE 177 mg/dL (75-110); POTASSIUM 3.8 mmol/L (3.6-5.0); TOTAL PROTEIN 7.9 g/dL (6.3-8.2)
[2020-03-12 15:46] LABS: NT PRO BNP 32 pg/mL (<125)
[2020-03-12 15:48] LABS: TROPONIN I < 0.012 ng/mL
[2020-03-12 16:10] LABS: INTERNATIONAL RATION (INR) 0.92
[2020-03-12 16:48] LABS: APPEARANCE,URINE CLEAR; BILIRUBIN,URINE NEGATIVE (NEGATIVE); COLOR,URINE STRAW; GLUCOSE, URINE 50 mg/dL (NEGATIVE); KETONES,URINE NEGATIVE (NEGATIVE); LEUKOCYTE ESTERASE,URINE NEGATIVE (NEGATIVE); NITRITE,URINE NEGATIVE (NEGATIVE); PROTEIN,URINE NEGATIVE (NEGATIVE); URINE SPECIFIC GRAVITY 1.003; UROBILINOGEN,URINE NEGATIVE mg/dL (<2.0)
[2020-03-12 16:56] LABS: URINE AMPHETAMINES SCREEN NEGATIVE; URINE BARBITURATES SCREEN NEGATIVE; URINE BENZODIAZEPINES SCREEN NEGATIVE; URINE COCAINE SCREEN NEGATIVE; URINE MARIJUANA (THC) SCREEN NEGATIVE; URINE METHADONE SCREEN NEGATIVE; URINE PHENCYCLIDINE SCREEN NEGATIVE
[2020-03-12 18:20] VITALS: BP 144/89
--- NOTE | 2020-03-12 19:22 | EKG REPORT ---
SEVERITY:- OTHERWISE NORMAL ECG - SINUS TACHYCARDIA : Confirmed by: Barby Price MD 12-Mar-2020 19:20:21
== END 2020-03-12 18:20 | disposition home or self-care (01) ==
LOC: ER 14:38
DX: J06.9 Acute upper respiratory infection, unspecified (principal); R00.0 Tachycardia, unspecified; R00.2 Palpitations; R59.1 Generalized enlarged lymph nodes; R07.9 Chest pain, unspecified; M79.602 Pain in left arm; R51.9 Headache, unspecified; R42 Dizziness and giddiness; R61 Generalized hyperhidrosis; R53.83 Other fatigue; R06.02 Shortness of breath; J45.909 Unspecified asthma, uncomplicated; Z87.891 Personal history of nicotine dependence; Z79.899 Other long term (current) drug therapy; Z88.8 Allergy status to other drugs, medicaments and biological substances; Z79.84 Long term (current) use of oral hypoglycemic drugs; E11.9 Type 2 diabetes mellitus without complications; I10 Essential (primary) hypertension
CPT/HCPCS: 93005; 99285; 96361; 96374; 36415; 87070; 87880; 82550; 83735; 84443; 85025; 85610; 80053; 81001; 84484; 80307; 85379; 83880; 71045; 93010; J3490; J7030

== ENCOUNTER 2020-03-28 12:41 | Emergency (ER) | payer SELFPAY ==
--- NOTE | 2020-03-28 14:36 | RADIOLOGY REPORT (SQ) ---
EXAM DESCRIPTION: CHEST SINGLE VIEW IMAGES COMPLETED DATE/TIME: 03/28/2020 2:15 pm REASON FOR STUDY: cp COMPARISON: Seen 2020 EXAM PARAMETERS: NUMBER OF VIEWS: One view. TECHNIQUE: Single frontal radiographic view of the chest acquired. RADIATION DOSE: NA LIMITATIONS: None. FINDINGS: LUNGS AND PLEURA: No opacities, masses or pneumothorax. No pleural effusion. MEDIASTINUM AND HILAR STRUCTURES: No masses. Contour normal. HEART AND VASCULAR STRUCTURES: Heart normal in size. Normal vasculature. BONES: No acute findings. HARDWARE: None in the chest. OTHER: No other significant finding. IMPRESSION: NO ACUTE RADIOGRAPHIC FINDING IN THE CHEST. TECHNICAL DOCUMENTATION: JOB ID: [id number] 2010 [employer]- All Rights Reserved Reading location - IP/workstation name: [email or web address]
[2020-03-28 14:56] LABS: ABSOLUTE BASOPHILS # (AUTO) 0.1 10^3/uL (0.0-0.2); ABSOLUTE EOSINOPHILS # (AUTO) 0.1 10^3/uL (0.0-0.6); ABSOLUTE LYMPHOCYTES (AUTO) 1.9 10^3/uL (0.5-4.7); ABSOLUTE MONOCYTES (AUTO) 0.7 10^3/uL (0.1-1.4); ABSOLUTE NEUT (AUTO) 8.2 10^3/uL (1.7-8.2); BASOPHILS % (AUTO) 0.9 % (0-2); EOSINOPHILS % (AUTO) 0.8 % (0-6); HEMATOCRIT 41.5 % (36.0-47.0); HEMOGLOBIN 13.2 g/dL (12.0-15.5); LYMPHOCYTES % (AUTO) 17.5 % (13-45); MEAN CORPUSCULAR HEMOGLOBIN 25.1 pg (27.0-33.4); MEAN CORPUSCULAR HGB CONC 31.8 g/dL (32.0-36.0); MEAN CORPUSCULAR VOLUME 79 fl (80-97); MONOCYTES % (AUTO) 6.8 % (3-13); PLATELET COUNT 208 10^3/uL (150-450); RED BLOOD COUNT 5.25 10^6/uL (3.72-5.28); RED CELL DISTRIBUTION WIDTH 15.2 % (11.5-14.0); TOTAL CELLS COUNTED % (AUTO) 100 %; WHITE BLOOD COUNT 11.1 10^3/uL (4.0-10.5)
--- NOTE | 2020-03-28 16:33 | ER Document Report ---
Entered by RAQUEL NEFF SCRIBE 03/28/20 [id number] Acting as scribe for:JINA VINSON MD ED General - General Stated Complaint: CHEST PAIN Time Seen by Provider: 03/28/20 14:17 Primary Care Provider: FUNMI WHITE MD [Primary Care Provider] - Follow up as needed Mode of Arrival: Ambulatory Information source: Patient Notes: This 29 year old female patient with a history of type 2 diabetes mellitus presents to the ED today with multiple somatic complaints. Patient came here for outpatient lab work ordered by her PCP at the [facility] which was drawn at 1135 this morning. She checked into the emergency department an hour later. Patient wrote down a list of complaints which are as follows: (1). "Redness/yellowing with pain and pressure behind the eyes, blurred vision" (2). "Difficulty breathing/chest pain just above and and on my heart, my lungs hurt" (3). "Severe headache that has lasted more than 3 months. It's effecting my performance at work and had caused me to lose my job." (4). "I can't eat or drink anything. I get an instant headache that won't go away!" (5). "Fatigue/ridges in my nails" (6). "Been prescribed antibiotics 3 different times and the symptoms don't seem to ease up!" (7). "Been nauseous and throwing up, abdominal pain" (8). "Sugar spikes, B/P spikes" TRAVEL OUTSIDE OF THE [place] IN LAST 30 DAYS: No - Related Data Allergies/Adverse Reactions: Latex, Natural Rubber Allergy (Verified 03/12/20 15:05) Past Medical History - General Information source: Patient - Social History Smoking Status: Former Smoker - quit x1 year ago Cigarette use (# per day): No Chew tobacco use (# tins/day): No Smoking Education Provided: No Frequency of alcohol use: Occasional Family History: Reviewed & Not Pertinent - Past Medical History Cardiac Medical History: Reports: Hx Hypertension Pulmonary Medical History: Reports: Hx Asthma Endocrine Medical History: Reports: Hx Diabetes Mellitus Type 2 Musculoskeletal Medical History: Reports Hx Arthritis Psychiatric Medical History: Reports: Hx Anxiety Past Surgical History: Reports: Hx Oral Surgery - wisdom teeth - Immunizations Hx Diphtheria, Pertussis, Tetanus Vaccination: Yes Review of Systems - Review of Systems Constitutional: See HPI EENT: See HPI, Eye pain, Blurred vision Cardiovascular: See HPI, Chest pain, Dyspnea Respiratory: No symptoms reported Gastrointestinal: See HPI, Abdominal pain, Nausea, Vomiting, Poor appetite, Poor fluid intake Genitourinary: No symptoms reported Female Genitourinary: No symptoms reported Musculoskeletal: No symptoms reported Skin: No symptoms reported Hematologic/Lymphatic: No symptoms reported Neurological/Psychological: See HPI, Headaches -: Yes All other systems reviewed and negative Physical Exam - Vital signs Vitals: Temp Pulse Resp BP Pulse Ox 98.5 F 94 18 128/83 H 99 03/28/20 13:11 03/28/20 13:11 03/28/20 13:11 03/28/20 13:11 03/28/20 13:11 - General General appearance: Appears well, Alert In distress: None - HEENT Head: Normocephalic, Atraumatic, Tenderness - Scalp musculature tenderness to palpation Eyes: Normal Extraocular movements intact: Yes Pupils: PERRL Neck: Other - Posterior cervical musculature tenderness to palpation - Respiratory Respiratory status: No respiratory distress Chest status: Tender - Anterior chest wall is exquisitely tender to palpation Breath sounds: Normal Chest palpation: Normal - Cardiovascular Rhythm: Regular Heart sounds: Normal auscultation Murmur: No - Abdominal Inspection: Obese Distension: No distension Bowel sounds: Normal Tenderness: Nontender - Abdomen soft Organomegaly: No organomegaly - Back Back: Tender - Medial scapular musculature tenderness to palpation - Extremities General upper extremity: Normal inspection General lower extremity: Normal inspection. No: Edema - Neurological Neuro grossly intact: Yes Orientation: AAOx4 [place] Coma Scale Eye Opening: Spontaneous Michael Coma Scale Verbal: Oriented [place] Coma Scale Motor: Obeys Commands [place] Coma Scale Total: 15 - Psychological Associated symptoms: Normal affect, Normal mood - Skin Skin Temperature: Warm Skin Moisture: Dry Skin Color: Normal Course - Re-evaluation Re-evalutation: 03/28/20 16:37 The patient's Chem-12 along with the hemoglobin A1c and other lab work was done just prior to checking into the emergency room, so the results can be found opening the earlier visit record. There were no abnormalities noted. - Vital Signs Vital signs: Temp Pulse Resp BP Pulse Ox 98.5 F 94 18 128/83 H 100 03/28/20 13:11 03/28/20 13:11 03/28/20 13:11 03/28/20 13:11 03/28/20 13:56 - Laboratory Results Result Diagrams: 03/28/20 14:40 Laboratory Results Interpreted: 03/28/20 14:40 WBC 11.1 H MCV 79 L MCH 25.1 L MCHC 31.8 L RDW 15.2 H Critical Laboratory Results Reviewed: No Critical Results - Radiology Results Radiology Results Interpreted: 03/28/20 16:38 Chest x-ray does not show acute cardiopulmonary process. Critical Radiology Results Reviewed: No Critical Results - EKG Interpretation by [facility] EKG shows normal: Sinus rhythm, Robinson, Intervals, QRS Complexes, ST-T Waves Rate: Normal - 92 Rhythm: NSR Discharge - Discharge Clinical Impression: Chest wall pain, Poorly controlled diabetes mellitus Tension type headache Qualifiers: Headache chronicity pattern: unspecified pattern Intractability: not intractable Qualified Code(s): G44.209 - Tension-type headache, unspecified, not intractable Condition: Stable Disposition: HOME, SELF-CARE Additional Instructions: Tension Headache Your problem has been diagnosed as muscle tension headache. This very c ommon type of headache occurs because of tightness in the muscles of the head and neck. The cause may be neck or jaw joint problems, but most commonly the cause is emotional stress. The headache may last hours or days. The treatment of uncomplicated tension headaches is rest and pain medicati on. Often, the newer antiinflammatory pain medications are prescribed, as these also decrease the irritability of the painful tissues. Muscle relaxers, cold packs, or warm packs are sometimes helpful. Anti-anxiety medication or narcotics are sometimes needed temporarily, but are best avoided in the long run. Your doctor has evaluated your headache problem, and finds no evidence of a serious health problem as a cause for the headache. If your headache becomes more severe, or if new symptoms develop (such as fever, stiff neck, vomiting, or decreasing alertness) you should be re-examined by the physician. Chest Wall Pain Your chest pain has been diagnosed as coming from the chest wall. This is often caused by straining the muscles or joints in the chest during physical activity, direct trauma, coughing, or vigorous vomiting. Persons with arthritis are especially prone to this type of pain, due to inflammation of the cartilage joints near the breast bone. Occasionally, no cause can be found. Rest from strenuous physical activity. This kind of chest pain is usually m danii worse by movement of the chest. Depending on the symptoms, we may prescribe medicine for pain, muscle relaxation, and antiinflammatory effects. If the pain is new, and seems to be due to muscle strain, cold packs can help. Otherwise, apply gentle warmth to the painful area for 15 minutes every hour or two. You should contact the doctor immediately if things change. Further evaluation is needed if you develop a fever or cough, if the nature of the pain changes, or if you become short of breath. The headache symptoms you are having seems to be muscle tension type headache. The chest pain you are having is coming from the anterior chest wall. All of your lab work is entirely normal except for the elevated blood sugar and hemoglobin A1c. Continue all of your regular medications. Take Tylenol and ibuprofen for headache and chest wall pain. Follow-up with your primary care provider to discuss all the symptoms you continue to have, and to review your elevated A1c level. RETURN TO THE EMERGENCY ROOM IF ANY NEW OR WORSENING SYMPTOMS. Referrals: FUNMI WHITE MD [Primary Care Provider] - Follow up as needed I personally performed the services described in the documentation, reviewed and edited the documentation which was dictated to the scribe in my presence, and it accurately records my words and actions.
[2020-03-28 16:59] VITALS: BP 135/83
--- NOTE | 2020-03-28 19:43 | EKG REPORT ---
SEVERITY:- NORMAL ECG - SINUS RHYTHM : Confirmed by: Earl Rico MD 28-Mar-2020 19:43:27
== END 2020-03-28 16:59 | disposition home or self-care (01) ==
LOC: ER 12:41
DX: R07.89 Other chest pain (principal); G44.209 Tension-type headache, unspecified, not intractable; E11.65 Type 2 diabetes mellitus with hyperglycemia; I10 Essential (primary) hypertension; J45.909 Unspecified asthma, uncomplicated; R10.9 Unspecified abdominal pain; R11.2 Nausea with vomiting, unspecified; R63.0 Anorexia; H53.8 Other visual disturbances; H57.10 Ocular pain, unspecified eye; Z87.891 Personal history of nicotine dependence; Z91.040 Latex allergy status
CPT/HCPCS: 36415; 71045; 82550; 84484; 84703; 85025; 93005; 93010; 99285

== ENCOUNTER → 2020-03-28 | Outpatient (CLI) | payer OTHER ==
[2020-03-28 13:57] LABS: ALBUMIN 3.8 g/dL (3.5-5.0); ALKALINE PHOSPHATASE 94 U/L (38-126); ANION GAP 6 (5-19); ASPARTATE AMINO TRANSFERASE 25 U/L (14-36); BILIRUBIN,DIRECT 0.1 mg/dL (0.0-0.4); BILIRUBIN,TOTAL 1.4 mg/dL (0.2-1.3); BLOOD UREA NITROGEN 4 mg/dL (7-20); CALCIUM 9.6 mg/dL (8.4-10.2); CARBON DIOXIDE 30 mmol/L (22-30); CHLORIDE 101 mmol/L (98-107); CHOLESTEROL 169.59 mg/dL (0-200); GLUCOSE 175 mg/dL (75-110); POTASSIUM 4.5 mmol/L (3.6-5.0); TOTAL PROTEIN 7.1 g/dL (6.3-8.2); TRIGLYCERIDES 93 mg/dL (<150)
[2020-03-28 14:08] LABS: DIRECT LDL 102 mg/dL (<100)
[2020-03-28 14:14] LABS: FREE T3 3.96 pg/mL (2.77-5.27); FREE T4 (FREE THYROXINE) 1.41 ng/dL (0.78-2.19)
[2020-03-28 14:28] LABS: THYROID STIMULATING HORMONE 0.88 uIU/mL (0.47-4.68)
--- NOTE | 2020-03-28 19:43 | EKG REPORT ---
SEVERITY:- NORMAL ECG - SINUS RHYTHM : Confirmed by: Earl Rico MD 28-Mar-2020 19:43:35
== END ==
LOC: CCC 11:20
PROVIDERS: ATTEND Internal Medicine
DX: E11.9 Type 2 diabetes mellitus without complications (principal); R00.2 Palpitations; R29.810 Facial weakness
CPT/HCPCS: 36415; 80053; 80061; 82533; 82607; 82746; 83036; 83735; 84439; 84443; 84481; 93005; 93010; 93041; 93042